=== PATIENT | female | born 1965 | race Caucasian/White ===

== ENCOUNTER 2016-11-18 16:10 | Emergency (ER) | payer MEDICAID ==
[~2016-11-18] VITALS: Ht 162.6 cm; Wt 72.0 kg
[~2016-11-18 16:10] MED LIST: HYDR-762 PO; ONDA4TAB35 PO
[2016-11-18 16:22] VITALS: Ht 162.6 cm; Wt 72.0 kg
[2016-11-18] MEDS ORDERED: ACETAMINOPHEN/CODEINE #3 TAB PO ONE (17:30)
--- NOTE | 2016-11-18 18:49 | RADRPT ---
PROCEDURE: CT Brain without contrast. CLINICAL INDICATION: Pain, headache TECHNIQUE: Routine CT scan of the brain was performed on a high resolution multi detector scanner without intravenous contrast. One or more of the following dose reduction techniques were used: Auto mated exposure control; Adjustment of the mA and/or kV according to patient size; Use of iterative r econstruction technique. CTDI = 43 mGy. DLP = 720 mGy-cm. COMPARISON: No prior relevant examinations are available for comparison. FINDINGS: Hemorrhage: No evidence of intracranial hemorrhage. Acute ischemic changes: No evidence of acute ischemic changes. Mass effect/Midline shift: None. Parenchymal volume: Within normal limits for age. Ventricular system: Concordant with parenchymal volume. Chronic changes: Parenchymal attenuation is within normal limits. Extracranial soft tissues: Unremarkable. Calvarium: No fractures. Paranasal sinuses: Visualized paranasal sinuses are clear. Mastoid air cells: Visualized mastoid air cells are clear. IMPRESSION: No acute intracranial abnormalities. Normal appearance of the brain parenchyma. RPTAT: AADD .Chris Booker MD, MD Date Time Electronically viewed and signed by .Chris Booker MD, on 11/18/2016 18:49 .B/
[2016-11-18] MEDS ORDERED: ABCC1C PO (18:55)
[2016-11-18] MEDS ORDERED: IBUP-1542 PO (18:55)
--- NOTE | 2016-11-18 19:00 | ERD ---
ER Documentation Chief Complaint Date/Time DATE: 11/18/16 TIME: 18:58 Chief Complaint HEADACHE X1 WEEK. HPI This 51-year-old female complains of left-sided headache for last week. Radiates from her left side of her neck to the left rastafarian area and left face.. She has a history of trauma, visual changes, vomiting, weakness, bowel or bladder incontinence. She denies any fevers or URI comes or additional preceding illnesses. ROS All systems reviewed and are negative except as per history of present illness. Medications Home Meds Active Scripts Ibuprofen* (Motrin*) 600 Mg Tab, 600 MG PO Q6, #20 TAB Prov:BREANNA LUCERO MD 11/18/16 Dahzqdclcbgja-Yiwownaqon-Xbxiygsz-Codeine* (Fioricet w/Codeine*) [id number] -30MG Cap, 1 CAP PO Q4H Y for PAIN LEVEL 1-5, #20 CAP Prov:BREANNA LUCERO MD 11/18/16 Ondansetron Hcl* (Zofran* ODT) 4 mg -ODT Tab.disper, 4 MG PO Q6 Y for NAUSEA AND /OR VOMITING, #30 TAB Prov:STACI PENA MD 05/19/16 Hydrocodone Bit-Acetaminophen* (Axis*) 10-325 Mg Tablet, 1 TAB PO Q6 Y for PAIN , #12 TAB Prov:STACI PENA MD 05/19/16 Allergies Allergies: Coded Allergies: No Known Allergy (Unverified , 05/19/16) PMhx/Soc History of Surgery: Yes (HYSTERECTOMY, C-SEC X1) Anesthesia Reaction: No Hx Alcohol Use: Yes (OCCASIONAL) Hx Substance Use: No Hx Tobacco Use: No Physical Exam Vitals Vital Signs Date Time Temp Pulse Resp B/P Pulse Ox O2 Delivery O2 Flow Rate FiO2 11/18/16 16:22 98.7 80 18 136/65 99 Physical Exam Const: [] Alert, mrl-lto-gfoennrzo per Head: Atraumatic Eyes: Normal Conjunctiva. Eyes are PERRLA and extraocular movements intact. ENT: Normal External Ears, Nose and Mouth. Neck: Full range of motion..~ No meningismus. Possibly reproducible pain with palpation of the C1-C2 paraspinous muscles. Resp: Clear to auscultation bilaterally Cardio: Regular rate and rhythm, no murmurs Abd: Soft, non tender, non distended. Normal bowel sounds Skin: No petechiae or rashes Back: No midline or flank tenderness Ext: No cyanosis, or edema Neur: Awake and alert. Cranial nerves II through XII grossly intact. Normal gait. No appreciable focal neurologic deficits. Psych: Normal Mood and Affect Results 24 hrs Current Medications Medications (Trade) Dose Ordered Sig/Kaur Route PRN Reason Start Time Stop Time Status Last Admin Dose Admin Acetaminophen/ Codeine Phosphate (Tylenol No.3) 1 tab ONCE ONCE PO 11/18/16 17:30 11/18/16 17:31 DC 11/18/16 17:29 Procedures/MDM Patient was given Tylenol [address] Patient is CT brain without contrast which was read as normal by the radiologist. Patient appears to have a left- sided headache possibly radiating from the cervical spine, possibly cervical radicular pain. She will be treated with Fiorinal with codeine and ibuprofen and observation at home. Patient is advised to follow-up with primary care doctor this week or return to the ER for new or worsening symptoms such as fevers, visual changes, weakness, additional symptoms with primary care doctor as directed. The patient was stable with no new complaints during the ER course. Clinically, there is no current evidence to suggest meningitis, sepsis, acute abdomen, pneumonia, acute coronary syndrome, pulmonary embolism, or any other emergent condition appearing to require further evaluation or hospitalization. The patient should certainly return for any new or worsening symptoms per the aftercare instructions. They should otherwise follow-up with her primary care doctor for reevaluation this week. Departure Diagnosis: Primary Impression: Neck pain Additional Impression: Headache Headache type: unspecified Headache chronicity pattern: unspecified pattern Intractability: not intractable Qualified Code: R51 - Nonintractable headache, unspecified chronicity pattern, unspecified headache type Condition: Stable Patient Instructions: Headache, Unspecified, Neck Pain, No Trauma Additional Instructions: CT NORMAL . Examines normal hoy. Cheque otro vez con luu doctor primario en el proximo urias or regresa para mas o nueva simptomas. BREANNA LUCERO MD Nov 18, 2016 19:00
== END 2016-11-18 19:03 | disposition home or self-care (01) ==
LOC: FTE 16:10
DX: M54.2 Cervicalgia (principal); R51 Headache
CPT/HCPCS: 70450; Z7502; Z7610

== ENCOUNTER 2017-03-30 22:07 | Emergency (ER) | payer MEDICAID ==
[~2017-03-30] VITALS: Ht 157.5 cm; Wt 74.0 kg
[~2017-03-30 22:07] MED LIST changes: +ABCC1C PO; +IBUP-1542 PO
[2017-03-30 22:15] VITALS: Ht 157.5 cm; Wt 74.0 kg
[2017-03-31] MEDS ORDERED: METOCLOPRAMIDE 10 MG INJ IV ONE (00:30)
[2017-03-31] MEDS ORDERED: DIPHENHYDRAMINE 50 MG INJ IV ONE (00:30)
[2017-03-31] MEDS ORDERED: SOD CHLORIDE 0.9% 500 ML IV ONE (00:30)
[2017-03-31 01:44] VITALS: BP 103/69; PULSE 68; RESP 17; TEMP 97.7
[2017-03-31] MEDS ORDERED: ASPI1TAB30 PO (01:52)
--- NOTE | 2017-03-31 02:00 | ERD ---
ER Documentation Chief Complaint Date/Time DATE: 03/31/17 TIME: 01:53 Chief Complaint Headache with hx of migraine HPI This 52-year-old male presents emergency room with a left-sided headache that has been going on for 1 week. Headache came on gradually and has gotten worse but has been steady for the last few days. She has had some nausea in the mornings with this headache. Denies fevers denies neck stiffness. Said that this feels like migraines that she has had before but is not responding to home Tylenol. She has no weakness, dizziness, difficulty speaking. ROS All systems reviewed and are negative except as per history of present illness. Medications Home Meds Active Scripts Aspirin/Acetaminophen/Caffeine (Excedrin Migraine Caplet) 1 Each Tablet, 1 EACH PO Q8 for HEADACHE, #10 TAB Prov:KRISTYN RODRÍGUEZ DO 03/31/17 Ibuprofen* (Motrin*) 600 Mg Tab, 600 MG PO Q6, #20 TAB Prov:BREANNA LUCERO MD 11/18/16 Tjxcmtaeeqyen-Njtucmqrwm-Lqoqywru-Codeine* (Fioricet w/Codeine*) [id number] -30MG Cap, 1 CAP PO Q4H Y for PAIN LEVEL 1-5, #20 CAP Prov:BREANNA LUCERO MD 11/18/16 Ondansetron Hcl* (Zofran* ODT) 4 mg -ODT Tab.disper, 4 MG PO Q6 Y for NAUSEA AND /OR VOMITING, #30 TAB Prov:STACI PENA MD 05/19/16 Hydrocodone Bit-Acetaminophen* ([place]*) 10-325 Mg Tablet, 1 TAB PO Q6 Y for PAIN , #12 TAB Prov:STACI PENA MD 05/19/16 Allergies Allergies: Coded Allergies: No Known Allergy (Unverified , 03/30/17) PMhx/Soc Medical and Surgical Hx: pt denies Medical Hx, pt denies Surgical Hx History of Surgery: No Anesthesia Reaction: No Hx Neurological Disorder: No Hx Respiratory Disorders: No Hx Cardiac Disorders: No Hx Psychiatric Problems: No Hx Miscellaneous Medical Probl: No Hx Alcohol Use: No Hx Substance Use: No Hx Tobacco Use: No Smoking Status: Never smoker Physical Exam Vitals Vital Signs Date Time Temp Pulse Resp B/P Pulse Ox O2 Delivery O2 Flow Rate FiO2 5/14/17 01:44 97.7 68 17 103/69 97 Room Air 03/30/17 23:48 98.0 71 18 136/74 99 Room Air 03/30/17 22:15 98.5 74 20 126/79 100 Physical Exam Const: [] No distress Head: Atraumatic Eyes: Normal Conjunctiva, EOMI, MORAIMA ENT: Normal External Ears, Nose and Mouth. Neck: Full range of motion..~ No meningismus. Skin: No petechiae or rashes Ext: No cyanosis, or edema Neur: Awake and alert and oriented 3, cranial nerves II through XII intact, no cerebellar deficits, normal gait Psych: Normal Mood and Affect Results 24 hrs Current Medications Medications (Trade) Dose Ordered Sig/Kaur Route PRN Reason Start Time Stop Time Status Last Admin Dose Admin Diphenhydramine HCl (Benadryl) 12.5 mg ONCE ONCE IV 03/31/17 00:30 03/31/17 00:31 DC 03/31/17 00:21 Metoclopramide HCl 10 mg 10 mg ONCE ONCE IV 03/31/17 00:30 03/31/17 00:31 DC 03/31/17 00:20 Sodium Chloride (NS) 500 ml @ 500 mls/hr Q1H ONCE IV 03/31/17 00:30 03/31/17 01:29 DC 03/31/17 00:21 Procedures/MDM Migraine that feels like patient's prior migraines but is lasting longer. Easily almost completely resolved with a migraine cocktail in the emergency room. This consisted of 12.5 mg IV Benadryl, 10 mg Reglan, 500 mL normal saline. I have very low suspicion for subarachnoid hemorrhage or meningitis. Discharging with primary care follow-up in next 2-3 days and return precautions. I am also discharging her with some Excedrin. Departure Diagnosis: Primary Impression: Migraine Condition: Stable Patient Instructions: What Are Migraine and Tension Headaches? Referrals: COMM[facility] CLIN[facility] YOU HAVE RECEIVED A MEDICAL SCREENING EXAM AND THE RESULTS INDICATE THAT YOU DO NOT HAVE A CONDITION THAT REQUIRES URGENT TREATMENT IN THE EMERGENCY DEPARTMENT. FURTHER EVALUATION AND TREATMENT OF YOUR CONDITION CAN WAIT UNTIL YOU ARE SEEN IN YOUR DOCTORS OFFICE WITHIN THE NEXT 1-2 DAYS. IT IS YOUR RESPONSIBILITY TO MAKE AN APPOINTMENT FOR FOLOW-UP CARE. IF YOU HAVE A PRIMARY DOCTOR --you should call your primary doctor and schedule an appointment IF YOU DO NOT HAVE A PRIMARY DOCTOR YOU CAN CALL OUR PHYSICIAN REFERRAL HOTLINE AT IF YOU CAN NOT AFFORD TO SEE A PHYSICIAN YOU CAN CHOSE FROM THE FOLLOWING [facility] [address] [facility] [address] [facility] [address] [facility] [address] [facility] [address] [facility]. [facility]. [address] Additional Instructions: Llame al doctor MAANA y titi matthew AMANDA PARA DENTRO DE 2-3 SOSA.Dgale a la secretaria que nosotros le instruimos hacer esta amanda.Avise o llame si luu condicin se empeora antes de la amanda. Regresa aqui si peor o no mejor. KRISTYN RODRÍGUEZ DO March 31, 2017 02:00
== END 2017-03-31 02:02 | disposition home or self-care (01) ==
LOC: E/R 22:07
DX: G43.909 Migraine, unspecified, not intractable, without status migrainosus (principal); Z79.82 Long term (current) use of aspirin
CPT/HCPCS: 96374; 96375; J1200; J2765; J7040; Z7502

== ENCOUNTER 2017-05-16 12:01 | Emergency (ER) | payer MEDICAID ==
[~2017-05-16] VITALS: Ht 165.1 cm; Wt 73.5 kg
[~2017-05-16 12:01] MED LIST changes: +ASPI1TAB30 PO
[2017-05-16 12:14] VITALS: Ht 165.1 cm; Wt 73.5 kg
[2017-05-16] MEDS ORDERED: KETOROLAC 15 MG INJ IM STA (12:54)
--- NOTE | 2017-05-16 13:36 | RADRPT ---
PROCEDURE: US venous left lower extremity CLINICAL INDICATION: Left lower extremity pain. TECHNIQUE: Multiple longitudinal and transverse images of the left lower extremity veins were obta ined with vuong scale and color Doppler imaging. 2D grayscale imaging with compression, color Dopple r flow, and augmentation was performed. The calf veins were interrogated as well. COMPARISON: None available. FINDINGS: The left common femoral, superficial femoral, and popliteal veins are normally compressible througho ut. There is normal color Doppler flow within the vessels and all the vessels are augmentable. The c detention veins are visualized and are equally unremarkable. IMPRESSION: 1. No evidence of a deep vein thrombosis within the left lower extremity. RPTAT: GG .Terrell Corea MD, Date Time Electronically viewed and signed by .Terrell Corea MD, MD on 05/16/2017 13:36 .P/
[2017-05-16] MEDS ORDERED: NAPR-260 PO (14:50)
[2017-05-16] MEDS ORDERED: CYCL-319 PO (14:50)
--- NOTE | 2017-05-16 14:58 | ERD ---
ER Documentation Chief Complaint Date/Time DATE: 05/16/17 TIME: 14:55 Chief Complaint Complains of left leg pain HPI She is a 52-year-old female with no past medical history who presents to the ED with left leg pain 1 week. She states that she stands all day at work and has been developing a cramping sensation in her left leg. She denies chest pain or cough or shortness of breath. She states that last night when she was laying down she felt palpitations in her heart however she denies those symptoms today. Denies shortness of breath. Denies syncopal episode. Denies leg swelling. Denies recent travel or recent surgeries. Denies fever or chills. She has not taken any medicine for her symptoms. Denies history of DVT or PE in the past. No other complaints denies trauma or falls ROS All systems reviewed and are negative except as per history of present illness. Medications Home Meds Active Scripts Cyclobenzaprine Hcl* (Cyclobenzaprine Hcl*) 10 Mg Tablet, 10 MG PO TID, #15 TAB Prov:RHIANNON TIDWELL PA-C 05/16/17 Naproxen* (Naprosyn*) 500 Mg Tablet, 500 MG PO BID Y for PAIN AND/OR INFLAMMATION, #30 TAB Prov:RHIANNON TIDWELL PA-C 05/16/17 Aspirin/Acetaminophen/Caffeine (Excedrin Migraine Caplet) 1 Each Tablet, 1 EACH PO Q8 for HEADACHE, #10 TAB Prov:KRISTYN RODRÍGUEZ DO 03/31/17 Ibuprofen* (Motrin*) 600 Mg Tab, 600 MG PO Q6, #20 TAB Prov:BREANNA LUCERO MD 11/18/16 Eayynylkzewfd-Aqkktiyxur-Ohjenqbp-Codeine* (Fioricet w/Codeine*) [id number] -30MG Cap, 1 CAP PO Q4H Y for PAIN LEVEL 1-5, #20 CAP Prov:BREANNA LUCERO MD 11/18/16 Ondansetron Hcl* (Zofran* ODT) 4 mg -ODT Tab.disper, 4 MG PO Q6 Y for NAUSEA AND /OR VOMITING, #30 TAB Prov:STACI PENA MD 05/19/16 Hydrocodone Bit-Acetaminophen* ([place]*) 10-325 Mg Tablet, 1 TAB PO Q6 Y for PAIN , #12 TAB Prov:STACI PENA MD 05/19/16 Allergies Allergies: Coded Allergies: No Known Allergy (Unverified , 03/30/17) PMhx/Soc History of Surgery: No Anesthesia Reaction: No Hx Neurological Disorder: No Hx Respiratory Disorders: No Hx Cardiac Disorders: No Hx Psychiatric Problems: No Hx Miscellaneous Medical Probl: No Hx Alcohol Use: No Hx Substance Use: No Hx Tobacco Use: No Smoking Status: Never smoker FmHx Family History: No coronary disease, No diabetes, No other Physical Exam Vitals Vital Signs Date Time Temp Pulse Resp B/P Pulse Ox O2 Delivery O2 Flow Rate FiO2 05/16/17 12:14 98.3 80 20 127/78 98 Physical Exam GENERAL: Well-developed, well-nourished female. Appears in no acute distress. HEAD: Normocephalic, atraumatic. EYES: Pupils are equally reactive bilaterally. EOMs grossly intact. No conjunctival erythema. ENT: Moist mucous membranes. No uvula deviation. No kissing tonsils. No exudates. NECK: Supple. No lymphadenopathy or thyromegaly. No meningismus. negative kernig. negative brudinski. LUNG: Clear to auscultation bilaterally. No rhonchi, wheezing, rales or coarse breath sounds. HEART: Regular rate and rhythm. No murmurs, rubs or gallops. Extremities: Equal pulses bilaterally. No peripheral clubbing, cyanosis or edema. No unilateral leg swelling. Negative Homans sign. No palpable cord. No erythema. NEUROLOGIC: Alert and oriented. Moving all four extremities. 5/5 strength in all extremities. Normal speech. unSteady gait. SKIN: Normal color. Warm and dry. No rashes or lesions. Capillary refill < 2 seconds Results 24 hrs Current Medications Medications (Trade) Dose Ordered Sig/Kaur Route PRN Reason Start Time Stop Time Status Last Admin Dose Admin Ketorolac Tromethamine (Toradol) 15 mg ONCE STAT IM 05/16/17 12:54 05/16/17 12:57 DC 05/16/17 13:45 Procedures/MDM ER COURSE: I kept the patient and/or family informed of laboratory and diagnostic imaging results throughout the emergency room course. IMAGING STUDIES EKG performed, read by DR ORDONEZ 66bpm, normal sinus rhythm, normal axis, no acute ST segment changes, no T wave inversion [place] [address] Radiology Main Line: [phone] DIAGNOSTIC IMAGING REPORT Patient: KATHRYN DIGGS : 1965 Age: 52 Sex: F MR #: [id number] DOS: 05/16/17 1254 Ordering MD: RHIANNON TIDWELL PA-C Location: [facility] Room/Bed: PROCEDURE: US venous left lower extremity CLINICAL INDICATION: Left lower extremity pain. TECHNIQUE: Multiple longitudinal and transverse images of the left lower extremity veins were obtained with vuong scale and color Doppler imaging. 2D grayscale imaging with compression, color Doppler flow, and augmentation was performed. The calf veins were interrogated as well. COMPARISON: None available. FINDINGS: The left common femoral, superficial femoral, and popliteal veins are normally compressible throughout. There is normal color Doppler flow within the vessels and all the vessels are augmentable. The calf veins are visualized and are equally unremarkable. IMPRESSION: 1. No evidence of a deep vein thrombosis within the left lower extremity. RPTAT: GG .Terrell Corea MD, MD Date Time Electronically viewed and signed by .Terrell Corea MD, MD on 05/16/2017 13:36 .P/ CC: RHIANNON TIDWELL PA-C MEDICAL DECISION MAKING: This is a 52-year-old female who presents with left leg pain 1 week. Vital signs were reviewed. Patient is afebrile. Patient is not hypoxic. Patient is nontoxic or ill-appearing. Patient denies any trauma and I do not think at this point an x-ray is necessary at this time. Patient states that it was a gradual onset of pain. Ultrasound was unremarkable for DVT. EKG wound was within normal limits. Patient's leg pain is likely muscle strain versus sprain. I have low suspicion for DVT or PE. PERC Criteria Assessment: Low suspicion for dislocation, fracture, septic joint, compartment syndrome, osteomyelitis, cellulitis, avascular necrosis, neurological injury, vascular injury, tendon laceration. Age > 50: No HR > 100: No 02 < 95%: No H/o DVT/PE: No Recent trauma/surgery: No Hemoptysis: No Exogenous Estrogen: No Unilateral Leg swelling: No Pretest probability > 15%: No [Less than 2% risk of PE. No further work up is necessary] DISCHARGE: At this time, patient is stable for discharge and outpatient management with no new complaints during the ER course. Patient was sent home with Lilli in the list of primary care providers and to follow-up with this week. Patient will be discharged home with instructions to recheck for new or worsening symptoms such as fever, nausea, weakness, LOC and to follow up with primary care in the next 1-2 days. Patient was advised to return to the ER for any new or worsening symptoms. Plan was discussed and patient and/or family understands and agrees. Home instructions were given. Departure Diagnosis: Primary Impression: Leg pain, left Condition: Stable Patient Instructions: Possible Causes of Low Back or Leg Pain Referrals: [facility] Usted se sanches hecho un examen mdico de control que le indica que no est en matthew condicin que requiera tratamiento urgente en el Departamento de Emergencia. Un estudio ms profundo y el tratamiento de luu condicin pueden esperar sin ningn riesgo hasta que usted sea atendida/o en el consultorio de luu mdico o matthew cl ar. Es responsabilidad suya arreglar matthew amanda para el seguimiento del jaswant. MANEJO DE CONDICIONES NO URGENTES EN EL FUTURO 1) Si usted tiene un mdico de atencin primaria: Usted debera llamar a luu mdico de atencin primaria antes de venir al departamento de emergencia. Despus de las horas de consultorio, luu doctor o luu asociado/a est disponible por telfono. El mdico o enfermero de lesley en el servicio telefnico puede asesorarle por rasta medio para atender el problema, o jaswant contrario se puede programar matthew amanda. 2) Si usted no tiene un mdico de atencin primaria: Llame al mdico o clnica de referencia que aparece abajo lavern las horas de consultorio para hacer matthew amanda para que le vean. CLINICAS: [facility] [phone] [facility] [phone] [facility] [phone] [place] [phone] [place] [address] [phone] [facility] [phone] [address] Additional Instructions: Llame al doctor MAANA y titi matthew AMANDA PARA DENTRO DE 1-2 SOSA.Dgale a la secretaria que nosotros le instruimos hacer esta amanda.Avise o llame si luu condicin se empeora antes de la amanda. Regresa aqui si peor o no mejor. RHIANNON TIDWELL PA-C May 16, 2017 14:58
[2017-05-16 15:30] VITALS: BP 138/75; PULSE 74; RESP 18; TEMP 98.5
== END 2017-05-16 15:31 | disposition home or self-care (01) ==
LOC: FTE 12:01
DX: M79.605 Pain in left leg (principal); R00.2 Palpitations
CPT/HCPCS: 93005; 93971; 96372; J1885; Z7502

== ENCOUNTER 2017-07-12 08:10 | Emergency (ER) | payer MEDICAID ==
[~2017-07-12] VITALS: Ht 160 cm; Wt 80.0 kg
[~2017-07-12 08:10] MED LIST changes: +CYCL-319 PO; +NAPR-260 PO
[2017-07-12 08:14] VITALS: Ht 160 cm; Wt 80.0 kg
[2017-07-12] MEDS ORDERED: morphine 4 MG/ML VIAL IV STA (08:31)
[2017-07-12] MEDS ORDERED: SOD CHLORIDE 0.9% 1,000 ML IV STA (08:31)
[2017-07-12] MEDS ORDERED: ONDANSETRON 4 MG INJ IV STA (08:31)
[2017-07-12 09:10] LABS: BASOPHIL # 0.1 10^3/ul (0.0-0.1); EOSINOPHILS # 0.1 10^3/ul (0.0-0.5); EOSINOPHILS % 1.4 % (0.0-7.0); HEMATOCRIT 38.7 % (37.0-47.0); HEMOGLOBIN 12.8 g/dl (12.0-16.0); LYMPHOCYTES % 24.5 % (15.0-51.0); MEAN CORPUSCULAR HEMOGLOBIN 29.3 pg (29.0-33.0); MEAN CORPUSCULAR HGB CONC 33.1 g/dl (32.0-37.0); MEAN CORPUSCULAR VOLUME 88.6 fl (82.0-101.0); MEAN PLATELET VOLUME 9.3 fl (7.4-10.4); MONOCYTE # 0.6 10^3/ul (0.3-0.9); MONOCYTES % 7.1 % (0.0-11.0); NEUTROPHILS % 65.6 % (39.0-77.0); PLATELET COUNT 288 10^3/UL (140-415); RED BLOOD COUNT 4.37 10^6/ul (4.20-5.40); RED CELL DISTRIBUTION WIDTH 13.6 % (11.5-14.5)
[2017-07-12 09:26] LABS: ANION GAP 16 (8-16); BLOOD UREA NITROGEN 10 mg/dl (7-20); CALCIUM 9.7 mg/dl (8.4-10.2); CARBON DIOXIDE 28 mmol/L (21-31); CHLORIDE 102 mmol/L (97-110); GLUCOSE 111 mg/dl (70-220); POTASSIUM 4.2 mmol/L (3.5-5.1); SODIUM 142 mmol/L (135-144)
--- NOTE | 2017-07-12 09:34 | RADRPT ---
PROCEDURE: CT brain without contrast CLINICAL INDICATION: Headache temporal 2 weeks TECHNIQUE: CT of the brain without contrast was performed on a multidetector CT scanner, with multi planar reformats. One or more of the following dose reduction techniques were used: Automated expos ure control, adjustment in mA and / or kV according to patient size, use of iterative reconstructive technique. CTDIvol = 44 mGy; DLP = 630 mGy-cm. COMPARISON: CT brain 11/18/2016 FINDINGS: No acute intracranial hemorrhage is identified. No extra-axial fluid collection is seen. There is no mass effect. No midline shift is identified. Ventricles and sulci are within normal limits for size and configuration. The density of the brain is unremarkable. Escudero-white differentiation is preserved. Atherosclerotic calcifications are noted at the intracranial internal carotid arteries. Calvarium and skull base are unremarkable. Mastoid air cells and imaged paranasal sinuses grossly c lear. IMPRESSION: No evidence of acute intracranial pathology. RPTAT: VV .Cm Juares MD, MD Date Time Electronically viewed and signed by .Cm Juares MD, on 07/12/2017 09:34 .O/
[2017-07-12 09:37] LABS: TROPONIN-I < 0.012 ng/ml (0.00-0.12)
[2017-07-12] MEDS ORDERED: IBUP-1542 PO (09:46)
[2017-07-12] MEDS ORDERED: ONDA4TAB14 PO (09:46)
--- NOTE | 2017-07-12 09:50 | ERD ---
ER Documentation Chief Complaint Date/Time DATE: 07/12/17 TIME: 09:48 Chief Complaint MONROY , vision changes and left face pain x 3 wks HPI Patient is a 52-year-old female with no medical problems who presents with headache. 3 weeks she has had left-sided facial pain and left-sided headache. She feels tired. She had chest palpitations. The symptoms were constant. She has a history of the same pain in the past and has been told that she had migraine headaches. Upon review of old medical records this is the patient's fifth visit to the ER since 2016. She does not currently have a primary doctor. ROS All systems reviewed and are negative except as per history of present illness. Medications Home Meds Active Scripts Ondansetron (Ondansetron Odt) 4 Mg Tab.rapdis, 4 MG PO Q6H Y for NAUSEA AND/OR VOMITING, #10 TAB Prov:STACI PENA MD 07/12/17 Ibuprofen* (Motrin*) 600 Mg Tab, 600 MG PO Q8, #30 TAB Prov:STACI PENA MD 07/12/17 Discontinued Scripts Cyclobenzaprine Hcl* (Cyclobenzaprine Hcl*) 10 Mg Tablet, 10 MG PO TID, #15 TAB Prov:RHIANNON TIDWELL PA-C 05/16/17 Naproxen* (Naprosyn*) 500 Mg Tablet, 500 MG PO BID Y for PAIN AND/OR INFLAMMATION, #30 TAB Prov:RHIANNON TIDWELL PA-C 05/16/17 Aspirin/Acetaminophen/Caffeine (Excedrin Migraine Caplet) 1 Each Tablet, 1 EACH PO Q8 for HEADACHE, #10 TAB Prov:KRISTYN RODRÍGUEZ DO 03/31/17 Ibuprofen* (Motrin*) 600 Mg Tab, 600 MG PO Q6, #20 TAB Prov:BREANNA LUCERO MD 11/18/16 Zmazfjxemuioe-Cqyomlruwv-Efkblrtl-Codeine* (Fioricet w/Codeine*) [id number] -30MG Cap, 1 CAP PO Q4H Y for PAIN LEVEL 1-5, #20 CAP Prov:BREANNA LUCERO MD 11/18/16 Ondansetron Hcl* (Zofran* ODT) 4 mg -ODT Tab.disper, 4 MG PO Q6 Y for NAUSEA AND /OR VOMITING, #30 TAB Prov:STACI PENA MD 05/19/16 Hydrocodone Bit-Acetaminophen* ([place]*) 10-325 Mg Tablet, 1 TAB PO Q6 Y for PAIN , #12 TAB Prov:STACI PENA MD 05/19/16 Allergies Allergies: Coded Allergies: No Known Allergy (Unverified , 07/12/17) PMhx/Soc Medical and Surgical Hx: pt denies Medical Hx, pt denies Surgical Hx History of Surgery: No Anesthesia Reaction: No Hx Neurological Disorder: No Hx Respiratory Disorders: No Hx Cardiac Disorders: No Hx Psychiatric Problems: No Hx Miscellaneous Medical Probl: Yes (headache) Hx Alcohol Use: No Hx Substance Use: No Hx Tobacco Use: No Smoking Status: Never smoker FmHx Family History: diabetes Physical Exam Vitals Vital Signs Date Time Temp Pulse Resp B/P Pulse Ox O2 Delivery O2 Flow Rate FiO2 07/12/17 08:47 78 21 114/86 98 Room Air 07/12/17 08:14 99.0 78 18 132/64 98 Physical Exam Const: Mild distress secondary to pain Head: Atraumatic Eyes: Normal Conjunctiva ENT: Normal External Ears, Nose and Mouth. Neck: Full range of motion..~ No meningismus. Resp: Clear to auscultation bilaterally Cardio: Regular rate and rhythm, no murmurs Abd: Soft, non tender, non distended. Normal bowel sounds Skin: No petechiae or rashes Back: No midline or flank tenderness Ext: No cyanosis, or edema Neur: Awake and alert, cranial nerves II through XII are intact, no slurred speech, strength is 5 out of 5 in all 4 extremities Psych: Normal Mood and Affect Result Diagram: 07/12/17 0846 07/12/17 0846 Results 24 hrs Laboratory Tests Test 07/12/17 08:46 White Blood Count 8.010^3/ul Red Blood Count 4.3710^6/ul Hemoglobin 12.8g/dl Hematocrit 38.7% Mean Corpuscular Volume 88.6fl Mean Corpuscular Hemoglobin 29.3pg Mean Corpuscular Hemoglobin Concent 33.1g/dl Red Cell Distribution Width 13.6% Platelet Count 61375^3/UL Mean Platelet Volume 9.3fl Neutrophils % 65.6% Lymphocytes % 24.5% Monocytes % 7.1% Eosinophils % 1.4% Basophils % 1.0% Nucleated Red Blood Cells % 0.0/100WBC Neutrophils # (Manual) 5.310^3/ul Lymphocytes # 2.010^3/ul Monocytes # 0.610^3/ul Eosinophils # 0.110^3/ul Basophils # 0.110^3/ul Nucleated Red Blood Cells # 0.010^3/ul Sodium Level 142mmol/L Potassium Level 4.2mmol/L Chloride Level 102mmol/L Carbon Dioxide Level 28mmol/L Anion Gap 16 Blood Urea Nitrogen 10mg/dl Creatinine 0.60mg/dl Glucose Level 111mg/dl Calcium Level 9.7mg/dl Troponin I < 0.012ng/ml Current Medications Medications (Trade) Dose Ordered Sig/Kaur Route PRN Reason Start Time Stop Time Status Last Admin Dose Admin Sodium Chloride (NS) 1,000 ml @ 1,000 mls/hr Q1H STAT IV 07/12/17 08:31 07/12/17 09:30 DC 07/12/17 08:31 Ondansetron HCl (Zofran Inj) 4 mg ONCE STAT IV 07/12/17 08:31 07/12/17 08:32 DC 07/12/17 09:27 Morphine Sulfate (morphine) 4 mg ONCE STAT IV 07/12/17 08:31 07/12/17 08:32 DC 07/12/17 08:31 Procedures/MDM CT brain shows no abnormalities per radiology. Patient is a 52-year-old female with no medical problems who presents with headache and facial pain. Laboratory studies were normal. CT scan of the brain was negative. At this point I doubt intracranial hemorrhage or mass. I doubt stroke. I doubt meningitis. I believe outpatient management is appropriate. The patient will be given a prescription for ibuprofen and Zofran but will need to follow-up closely with the primary doctor within the next 24- 48 hours. She will be given a list of the local clinics as she does not currently have a primary doctor at this time. Departure Diagnosis: Primary Impression: Headache Headache type: unspecified Headache chronicity pattern: acute headache Intractability: not intractable Qualified Code: R51 - Acute nonintractable headache, unspecified headache type Additional Impression: Dizziness Condition: Fair Patient Instructions: Self-Care for Headaches Referrals: [facility] Usted se monroy hecho un examen mdico de control que le indica que no est en matthew condicin que requiera tratamiento urgente en el Departamento de Emergencia. Un estudio ms profundo y el tratamiento de luu condicin pueden esperar sin ningn riesgo hasta que usted sea atendida/o en el consultorio de luu mdico o matthew cl ar. Es responsabilidad suya arreglar matthew amanda para el seguimiento del jaswant. MANEJO DE CONDICIONES NO URGENTES EN EL FUTURO 1) Si usted tiene un mdico de atencin primaria: Usted debera llamar a luu mdico de atencin primaria antes de venir al departamento de emergencia. Despus de las horas de consultorio, luu doctor o luu asociado/a est disponible por telfono. El mdico o enfermero de lesley en el servicio telefnico puede asesorarle por rasta medio para atender el problema, o jaswant contrario se puede programar matthew amanda. 2) Si usted no tiene un mdico de atencin primaria: Llame al mdico o clnica de referencia que aparece abajo lavern las horas de consultorio para hacer matthew amanda para que le vean. CLINICAS: [facility] [phone] [facility] [phone] [address] [facility] [phone] [facility]. [facility] [phone] [facility]. [place] [phone] [facility]. [phone] [address] Additional Instructions: Llame al doctor MAANA y titi matthew AMANDA PARA DENTRO DE 1-2 SOSA.Dgale a la secretaria que nosotros le instruimos hacer esta amanda.Avise o llame si luu condicin se empeora antes de la amanda. Regresa aqui si peor o no mejor. STACI PENA MD Jul 12, 2017 09:48
[2017-07-12 11:39] LABS: INR 1.02; PROTIME 13.4 Sec (12.2-14.2)
[2017-07-12 11:40] VITALS: BP 111/81; PULSE 61; RESP 20; TEMP 99
[2017-07-12 11:40] LABS: PARTIAL THROMBOPLASTIN TIME 27.8 Sec (25.0-35.0)
== END 2017-07-12 11:43 | disposition home or self-care (01) ==
LOC: E/R 08:10
DX: R51 Headache (principal); R40.2252 Coma scale, best verbal response, oriented, at arrival to emergency department; R42 Dizziness and giddiness; R40.2142 Coma scale, eyes open, spontaneous, at arrival to emergency department; R40.2362 Coma scale, best motor response, obeys commands, at arrival to emergency department; Z79.82 Long term (current) use of aspirin
CPT/HCPCS: 36415; 70450; 80048; 84484; 85025; 85610; 85730; 96374; 96375; J2270; J2405; J7030; Z7502; Z7610

== ENCOUNTER 2017-07-25 08:15 | Inpatient (IN) | payer MEDICAID ==
[~2017-07-25] VITALS: Ht 170.2 cm; Wt 74.7 kg
[~2017-07-25 08:15] MED LIST changes: -ABCC1C PO; -ASPI1TAB30 PO; -CYCL-319 PO; -HYDR-762 PO; -NAPR-260 PO; +ONDA4TAB14 PO; -ONDA4TAB35 PO
[2017-07-25] MEDS ORDERED: ONDANSETRON 4 MG INJ IV STA (08:58)
[2017-07-25] MEDS ORDERED: LIDOCAINE/MYLANTA 40 ML BTL PO STA (08:58)
[2017-07-25] MEDS ORDERED: FAMOTIDINE 20 MG TAB PO STA (08:58)
[2017-07-25] MEDS ORDERED: BELLADONNA/PHENOBARBITAL TAB PO STA (08:58)
[2017-07-25] MEDS ORDERED: SOD CHLORIDE 0.9% 1,000 ML IV STA (08:58)
[2017-07-25] MEDS ORDERED: KETOROLAC 15 MG INJ IV STA (08:58)
[2017-07-25 09:28] LABS: BASOPHIL # 0.1 10^3/ul (0.0-0.1); BASOPHILS % 0.6 % (0.0-2.0); EOSINOPHILS # 0.1 10^3/ul (0.0-0.5); EOSINOPHILS % 0.8 % (0.0-7.0); HEMATOCRIT 36.3 % (37.0-47.0); HEMOGLOBIN 12.6 g/dl (12.0-16.0); LYMPHOCYTES # 1.6 10^3/ul (0.8-2.9); LYMPHOCYTES % 18.3 % (15.0-51.0); MEAN CORPUSCULAR HEMOGLOBIN 30.1 pg (29.0-33.0); MEAN CORPUSCULAR HGB CONC 34.7 g/dl (32.0-37.0); MEAN CORPUSCULAR VOLUME 86.6 fl (82.0-101.0); MEAN PLATELET VOLUME 8.7 fl (7.4-10.4); MONOCYTES % 11.6 % (0.0-11.0); NEUTROPHILS % 68.1 % (39.0-77.0); PLATELET COUNT 302 10^3/UL (140-415); RED BLOOD COUNT 4.19 10^6/ul (4.20-5.40); RED CELL DISTRIBUTION WIDTH 13.5 % (11.5-14.5); WHITE BLOOD COUNT 8.9 10^3/ul (4.8-10.8)
[2017-07-25 09:39] LABS: ADD UMIC YES; UR ASCORBIC ACID NEGATIVE (NEGATIVE); UR BILIRUBIN (Dip) NEGATIVE (NEGATIVE); UR BLOOD (Dip) 2+ mg/dL (NEGATIVE); UR CLARITY CLEAR (CLEAR); UR COLOR STRAW (YELLOW); UR GLUCOSE (Dip) NEGATIVE (NEGATIVE); UR KETONES (Dip) NEGATIVE (NEGATIVE); UR LEUKOCYTE ESTERASE (Dip) NEGATIVE Leu/ul (NEGATIVE); UR NITRITE (Dip) NEGATIVE (NEGATIVE); UR RBC 1 /HPF (0-5); UR SPECIFIC GRAVITY (Dip) 1.002 (1.003-1.030); UR TOTAL PROTEIN (Dip) NEGATIVE (NEGATIVE); UR UROBILINOGEN (Dip) NEGATIVE (NEGATIVE)
[2017-07-25 10:07] LABS: ALBUMIN/GLOBULIN RATIO 1.25; BILIRUBIN,INDIRECT 0.4 mg/dl (0-1.1); BILIRUBIN,TOTAL 0.4 mg/dl (0.2-1.3); CALCIUM 9.3 mg/dl (8.4-10.2); CREATININE 0.63 mg/dl (0.44-1.00); POTASSIUM 3.3 mmol/L (3.5-5.1); TOTAL PROTEIN 7.2 g/dl (6.1-8.1)
--- NOTE | 2017-07-25 11:28 | RADRPT ---
PROCEDURE: US Abdomen. CLINICAL INDICATION: abdominal pain , nausea and vomiting TECHNIQUE: Multiple real-time images were acquired of the patient's right upper quadrant abdomen a nd retroperitoneum utilizing a high resolution transducer. COMPARISON: US ABDOMEN 05/19/2016 FINDINGS: The liver demonstrates normal echogenicity. The liver is normal in size and no focal solid lesions are seen. The liver measures 16.1 cm in length. The portal vein is patent with normal direction of f low. No intrahepatic biliary dilatation is seen. There is a large calcified stone within the gallbladder measuring 3.1 cm. There is also a small amou nt of sludge within the gallbladder. There is no pericholecystic fluid or gallbladder wall thickenin g. The common bile duct measures 3 mm in maximal dimension. The visualized portions of the pancreas are unremarkable. The tail of the pancreas is not seen. No free fluid is identified. The right kidney is normal in size, and demonstrate normal echogenicity and cortical thickness. The right kidney measures 10.7 cm in long dimension. There is no evidence of hydronephrosis. There are no kidney stones. RPTAT: AA IMPRESSION: Large calcified stone within the gallbladder with a small amount of sludge. No evidence of gallbladder wall thickening or pericholecystic fluid. .Todd Steinberg MD, MD Date Time Electronically viewed and signed by .Todd Steinberg MD, on 07/25/2017 11:27 .S/
[2017-07-25 11:30] VITALS: TEMP 98.3
[2017-07-25 14:02] VITALS: BP 106/72; RESP 18
--- NOTE | 2017-07-25 14:16 | ERA ---
ER Documentation Chief Complaint Date/Time DATE: 07/25/17 TIME: 14:11 Chief Complaint ABD PAIN, CONSTIPATION, HEADACHE, NAUSEA HPI 52-year-old woman complains of right upper quadrant abdominal pain with nausea 2 days. She states the pain is been increasingAnd states she does have a history of cholelithiasis but pain is never been so severe. She denies blood per rectum or melena, no fevers or chills, no chest pain or shortness of breath. ROS All systems reviewed and are negative except as per history of present illness. Medications Home Meds Discontinued Scripts Ondansetron (Ondansetron Odt) 4 Mg Tab.rapdis, 4 MG PO Q6H Y for NAUSEA AND/OR VOMITING, #10 TAB Prov:STACI PENA MD 07/12/17 Ibuprofen* (Motrin*) 600 Mg Tab, 600 MG PO Q8, #30 TAB Prov:STACI PENA MD 07/12/17 Allergies Allergies: Coded Allergies: No Known Allergy (Unverified , 07/12/17) PMhx/Soc Gallstones Medical and Surgical Hx: pt denies Medical Hx, pt denies Surgical Hx History of Surgery: No Anesthesia Reaction: No Hx Neurological Disorder: No Hx Respiratory Disorders: No Hx Cardiac Disorders: No Hx Psychiatric Problems: No Hx Miscellaneous Medical Probl: Yes (headache) Hx Alcohol Use: No Hx Substance Use: No Hx Tobacco Use: No Smoking Status: Never smoker FmHx Family History: No diabetes Physical Exam Vitals Vital Signs Date Time Temp Pulse Resp B/P Pulse Ox O2 Delivery O2 Flow Rate FiO2 07/25/17 11:30 98.3 76 20 106/51 98 Room Air 07/25/17 10:43 68 16 102/61 99 Room Air 07/25/17 08:16 98.7 91 18 102/64 98 Physical Exam GENERAL: Well-developed, well-nourished, moderate discomfort, afebrile HEENT: Moist mucous membranes, pink conjunctiva, no cervical spine tenderness or step-off deformities, no goiter, no jaundice or icterus, extraocular movements intact without pain. No submandibular induration, and no pharyngeal erythema NEURO: Alert and oriented 3, cranial nerves II through XII intact bilaterally, pupils equal round reactive to light, no focal deficits or facial asymmetry, sensation intact distally Strength 5/5 in upper and lower extremities bilaterally CARDIAC: Regular rate and rhythm, no murmurs rubs or gallops LUNGS: Clear bilaterally no wheezing crackles or stridor ABDOMEN: Mild right upper quadrant tenderness to touch with voluntary guarding, no guarding, no rigidity, no rebound, no psoas sign no obturator sign. Normoactive bowel sounds SKIN: Warm and dry to touch, no abrasions, contusions, or hematomas, no lacerations, no ecchymosis, no target lesions, and without ulcers EXTREMITIES: No clubbing cyanosis or edema, calves are bilaterally symmetrical, no Homans sign, no popliteal cord sign. Distal pulses equal and bilateral PSYCH: Normal affect without agitation or irritability Result Diagram: 07/25/1710 07/25/1710 Results 24 hrs Laboratory Tests Test 07/25/17 09:10 White Blood Count 8.910^3/ul Red Blood Count 4.1910^6/ul Hemoglobin 12.6g/dl Hematocrit 36.3% Mean Corpuscular Volume 86.6fl Mean Corpuscular Hemoglobin 30.1pg Mean Corpuscular Hemoglobin Concent 34.7g/dl Red Cell Distribution Width 13.5% Platelet Count 27886^3/UL Mean Platelet Volume 8.7fl Neutrophils % 68.1% Lymphocytes % 18.3% Monocytes % 11.6% Eosinophils % 0.8% Basophils % 0.6% Nucleated Red Blood Cells % 0.0/100WBC Neutrophils # (Manual) 6.110^3/ul Lymphocytes # 1.610^3/ul Monocytes # 1.010^3/ul Eosinophils # 0.110^3/ul Basophils # 0.110^3/ul Nucleated Red Blood Cells # 0.010^3/ul Urine Color STRAW Urine Clarity CLEAR Urine pH 8.0 Urine Specific [place] 1.002 Urine Ketones NEGATIVEmg/dL Urine Nitrite NEGATIVEmg/dL Urine Bilirubin NEGATIVEmg/dL Urine Urobilinogen NEGATIVEmg/dL Urine Leukocyte Esterase NEGATIVELeu/ul Urine Microscopic RBC 1/HPF Urine Microscopic WBC 0/HPF Urine Hemoglobin 2+mg/dL Urine Glucose NEGATIVEmg/dL Urine Total Protein NEGATIVEmg/dl Sodium Level 143mmol/L Potassium Level 3.3mmol/L Chloride Level 105mmol/L Carbon Dioxide Level 27mmol/L Anion Gap 14 Blood Urea Nitrogen 9mg/dl Creatinine 0.63mg/dl Glucose Level 99mg/dl Calcium Level 9.3mg/dl Total Bilirubin 0.4mg/dl Direct Bilirubin 0.00mg/dl Indirect Bilirubin 0.4mg/dl Aspartate Amino Transf (AST/SGOT) 194IU/L Alanine Aminotransferase (ALT/SGPT) 209IU/L Alkaline Phosphatase 237IU/L Total Protein 7.2g/dl Albumin 4.0g/dl Globulin 3.20g/dl Albumin/Globulin Ratio 1.25 Lipase 67U/L Current Medications Medications (Trade) Dose Ordered Sig/Kaur Route PRN Reason Start Time Stop Time Status Last Admin Dose Admin Sodium Chloride (NS) 1,000 ml @ 1,000 mls/hr Q1H STAT IV 07/25/17 08:58 07/25/17 09:57 DC 07/25/17 09:24 Ondansetron HCl (Zofran Inj) 4 mg ONCE STAT IV 07/25/17 08:58 07/25/17 09:17 DC 07/25/17 09:24 Famotidine (Pepcid) 40 mg ONCE STAT PO 07/25/17 08:58 07/25/17 09:17 DC 07/25/17 09:24 Miscellaneous Medication (Gi Cocktail (2)) 40 ml ONCE STAT PO 07/25/17 08:58 07/25/17 09:17 DC 07/25/17 09:24 Belladonna/ Phenobarbital () 2 tab ONCE STAT PO 07/25/17 08:58 07/25/17 09:17 DC 07/25/17 09:24 Ketorolac Tromethamine (Toradol) 15 mg ONCE STAT IV 07/25/17 08:58 07/25/17 09:17 DC 07/25/17 09:24 Procedures/MDM IV line was established patient was placed on bobbin disker rhythm strip revealed a sinus rhythm at 80 bpm with upright P and T waves. Patient was afebrile. I administered 1 L of normal saline intravenously, Zofran 4 mg IV, Toradol 15 mg IV, famotidine 40 mg p.o. and a GI cocktail 30 cc p.o. with good response. Gallbladder ultrasound revealed a large stone in the gallbladder. Please refer to radiologist dictation for full report. CBC and electrolytes were normal liver function tests revealed elevated alkaline phosphatase and transaminitis.Urine analysis negative for infection. Patient has continued symptomatology and may have early cholecystitis given her symptoms, physical examination, labs and ultrasound findings. She will be admitted for continued pain management and surgical consultation. Surgeon was paged although he is in the OR at this time and will call back when he can. Departure Diagnosis: Primary Impression: Abdominal pain Qualified Code: R10.11 - Right upper quadrant abdominal pain Additional Impressions: Cholelithiasis Qualified Code: K80.71 - Calculus of gallbladder and bile duct with obstruction without cholecystitis Transaminitis Condition: JENNIFER Bonilla MD Jul 25, 2017 14:16
[2017-07-25 14:30] VITALS: Ht 170.2 cm; Wt 74.7 kg
--- NOTE | 2017-07-25 15:25 | CONS ---
Date/Time of Note Date/Time of Note DATE: 07/25/17 TIME: 15:17 Assessment/Plan Assessment/Plan Additional Assessment/Plan Assessment * Abdominal pain * Cholecystolithiasis with bile sludge * Elevated transaminases Plan * Pain control * MRCP * Trend transaminases * NPO * Case discussed with Dr Cabral * Further ordes will depend on clinical course Consultation Date/Type/Reason Admit Date/Time Jul 25, 2017 at 12:09 Date of Consultation: Jul 25, 2017 Type of Consultation: gastroenterology Reason for Consultation elevated transaminase,gallstone Referring Provider: CARLEE RILEY MD Hx of Present Illness 52 year old female presented in the emergency room complaining of right upper quadrant pain with nausea and vomiting x 2 days.She denies any cheat pain, shortness of breath fever.Patient claims to have been diagnosed with gallstones 2 year s ago/Emergency room workup revealed elevated transaminases AST 194,ALT 209,alkaline phosphatase 237 and wbc 8.7.Ultrasound revealed large calcified stone with sludge and cbd 3 mm.Presently patient still with abdominal pain Constitutional: improved, no complaints Eyes: no complaints ENT: no complaints Respiratory: no complaints Cardiovascular: no complaints Gastrointestinal: no complaints, pain Genitourinary: no complaints Musculoskeletal: no complaints Skin: no complaints Neurologic: no complaints Endocrine: no complaints Lymphatic: no complaints Psychological: nl mood/affect, no complaints Immunologic: no complaints Past Medical History Medical History: other (gallstone) Past Surgical History Past Surgical Hx: no surgical history Family History Significant Family History: no pertinent family hx Social History Alcohol Use: sober Smoking Status: Never smoker Drug Use: none Exam/Review of Systems Vital Signs Vitals Vital Signs Date Time Temp Pulse Resp B/P Pulse Ox O2 Delivery O2 Flow Rate FiO2 07/25/17 14:02 98.4 74 18 106/72 99 07/25/17 12:49 Room Air Exam Constitutional: alert, oriented, well developed Psych: nl mood/affect, no complaints Head: atraumatic, normocephalic Eyes: EOMI, PERRL, nl conjunctiva, nl lids, nl sclera ENMT: nl external ears & nose, nl lips & teeth, nl nasal mucosa & septum Neck: non-tender, supple Respiratory: clear to auscultation, normal air movement Cardiovascular: nl pulses, regular rate and rhythm Gastrointestinal: nl liver, spleen, soft, tender (right upper quadrant), No rebound or guarding Musculoskeletal: nl extremities to inspection, nl gait and stance Extremities: normal pulses Neurological: NIGHT WORKER II-XII intact, nl mental status, nl speech, nl strength Skin: nl turgor, No rash or lesions Lymph: nl lymph nodes Results Result Diagram: 07/25/1710 07/25/17 0910 Results 24 hrs Laboratory Tests Test 07/25/17 09:10 White Blood Count 8.9 Red Blood Count 4.19 L Hemoglobin 12.6 Hematocrit 36.3 L Mean Corpuscular Volume 86.6 Mean Corpuscular Hemoglobin 30.1 Mean Corpuscular Hemoglobin Concent 34.7 Red Cell Distribution Width 13.5 Platelet Count 302 Mean Platelet Volume 8.7 Neutrophils % 68.1 Lymphocytes % 18.3 Monocytes % 11.6 H Eosinophils % 0.8 Basophils % 0.6 Nucleated Red Blood Cells % 0.0 Neutrophils # (Manual) 6.1 Lymphocytes # 1.6 Monocytes # 1.0 H Eosinophils # 0.1 Basophils # 0.1 Nucleated Red Blood Cells # 0.0 Urine Color STRAW Urine Clarity CLEAR Urine pH 8.0 Urine Specific [place] 1.002 L Urine Ketones NEGATIVE Urine Nitrite NEGATIVE Urine Bilirubin NEGATIVE Urine Urobilinogen NEGATIVE Urine Leukocyte Esterase NEGATIVE Urine Microscopic RBC 1 Urine Microscopic WBC 0 Urine Hemoglobin 2+ H Urine Glucose NEGATIVE Urine Total Protein NEGATIVE Sodium Level 143 Potassium Level 3.3 L Chloride Level 105 Carbon Dioxide Level 27 Anion Gap 14 Blood Urea Nitrogen 9 Creatinine 0.63 Glucose Level 99 Calcium Level 9.3 Total Bilirubin 0.4 Direct Bilirubin 0.00 Indirect Bilirubin 0.4 Aspartate Amino Transf (AST/SGOT) 194 H Alanine Aminotransferase (ALT/SGPT) 209 H Alkaline Phosphatase 237 H Total Protein 7.2 Albumin 4.0 Globulin 3.20 Albumin/Globulin Ratio 1.25 Lipase 67 MAINE MUNOZ NP Jul 25, 2017 15:25
--- NOTE | 2017-07-25 15:55 | HP ---
Date/Time of Note Date/Time of Note DATE: 07/25/17 TIME: 15:44 Assessment/Plan VTE Prophylaxis VTE Prophylaxis Intervention: SCD's Assessment/Plan Chief Complaint/Hosp Course 52 yo female with h/o cholelithiasis and migraines who presents with abdominal pain over the past few days. She has been found to have elevated transaminases and large gall stone on RUQ US, without wall thickening, ductal dilation, or pericholecystic fluid Abdominal pain w transaminitis: - Likely this is symptomatic cholelithiasis - She does not have fever, leukocytosis or imaging findings to suggest cholecystitis - Surgical consult per Dr Brown - Given lack of acute findings on US, must consider alternative etiologies of transaminitis: will send iron studies, viral serologies for now and obtain MRCP NPO for now Problems: HPI/ROS Admit Date/Time Admit Date/Time Jul 25, 2017 at 12:09 Hx of Present Illness 52 yo female with h/o cholelithiasis, migraines presenting with abdominal pain over past couple days Patient with known gall stones previously. Here in 2015 with US showing nonobstructing stones. Intermittent colicy abd pain over past years. Over past couple days much more severe. Denies any fevers, though does report "chills". Tolerating normal PO. Pain is intermittent, does not seem worse w eating. Normal bowel habits. Pain to my exam and history is more diffuse and lower quadrants but not localized to RUQ. In ED found to have elevated transaminases and gall stones on US without pericholecystic fluid or wall thickening, normal ducts. Comfortable when seen by me on the floor ROS Eyes: no complaints ENT: no complaints Respiratory: no complaints Cardiovascular: no complaints Gastrointestinal: no complaints, pain Genitourinary: no complaints Musculoskeletal: no complaints Skin: no complaints Neurologic: no complaints Lymphatic: no complaints Psychological: nl mood/affect, no complaints Immunologic: no complaints PMH/Family/Social Past Medical History Medical History: gallstones, other (gallstone) Past Surgical History Past Surgical Hx: no surgical history Family History Significant Family History: no pertinent family hx Social History Alcohol Use: sober Smoking Status: Never smoker Drug Use: none Exam/Review of Systems Vital Signs Vitals Vital Signs Date Time Temp Pulse Resp B/P Pulse Ox O2 Delivery O2 Flow Rate FiO2 07/25/17 14:02 98.4 74 18 106/72 99 07/25/17 12:49 Room Air Exam Exam Very comfortable appearing, no distress Non toxic RRR, no murmus, flat neck veins Lungs are clear, nonlabored respirations no splinting Abdomen is soft, nontender, no distended and murphys sign is negative Extremities are warm without edema RUQ U/S showed large gall stone without wall thickening or fluid Labs Result Diagram: 07/25/17 0910 07/25/17 0910 CARLEE RILEY MD Jul 25, 2017 15:55
[2017-07-25] MEDS ORDERED: NACL 0.9% 3 ML SYG IV SCH (16:30)
[2017-07-25] MEDS ORDERED: HYDROCODONE/APAP (5/325) TAB PO PRN (16:30)
[2017-07-25 17:02] LABS: HAAIG REFLEX REFLEX FILED
--- NOTE | 2017-07-25 17:04 | CONS ---
Date/Time of Note Date/Time of Note DATE: 07/25/17 TIME: 17:03 Assessment/Plan Assessment/Plan Additional Assessment/Plan [facility] INPATIENT CONSULTATION NOTE DATE OF SERVICE: 07/25/2017 PLACE OF SERVICE: [facility], sixth floor ASSESSMENT AND PLAN: A very-pleasant 52-year-old lady with comorbidity of class I obesity as well as migraine headaches, presenting with abdominal pain of unclear etiology. Since the pain is mainly on the left side, the patient will need further workup in the form of gastroenterology consultation with consideration for upper endoscopy, possible lower endoscopy, and CT scan of abdomen and pelvis. Patient also has significant liver function and injury parameters are abnormalities which are likely due to her fatty liver disease, but potentially also due to stone disease in the bile duct. For this reason an MRCP is indicated. Finally, her gallbladder is full stones and since this is her second visit to our hospital, I would recommend that she considers undergoing semi-elective or elective laparoscopic cholecystectomy. Note that this was also recommended to her during her last visit with us in the emergency department last year. I explained all of this to the patient (no family present during my discussions with the patient) and answered all questions. Patient appeared to understand and agreed with the plans. With above assessment, I've recommended the followin. CT scan of abdomen and pelvis with IV and oral contrast 2. MRCP 3. GI consultation 4. Keep in-house 5. Consideration for laparoscopic cholecystectomy, perhaps towards the end of this admission or electively as an outpatient Thank you very much for having me involved in the care of this very pleasant patient and wonderful family. If you have any questions, please feel free to contact me at [phone]. Nature of presenting problem: Moderate to high severity Please note that, given the extensive number of diagnoses or management options , the extensive amount and/or complexity of data needed to be reviewed, and high risk of complications and/or morbidity or mortality, this qualifies as high complexity type of decision-making. Disclaimer: Inadvertent spelling and grammatical errors are likely due to EHR/ dictation software use and do not reflect on the quality of delivered patient care. Also, please note that the electronic time recorded on this node does not necessarily reflect the actual time of the visit. Updated clinical summary: A very-pleasant 52-year-old lady with comorbidity of class I obesity as well as migraine headaches, presenting to [facility] through the emergency department on 07/25/2017 with abdominal pain of unclear etiology. Comorbidities: 1. Class I obesity 2. Migraine headaches 3. Known cholelithiasis 4. Likely hepatic steatosis with possible steatohepatitis versus possible choledocholithiasis 5. Hysterectomy for fibroids CONSULTATION REQUESTED BY: Cody Hull MD HISTORY OF PRESENT ILLNESS: The patient is a very pleasant 52-year-old lady with above-mentioned comorbidities whom we were kindly asked consult regarding management of her gallbladder. Patient reported having abdominal pain associated with mild nausea but no vomiting. Pain is mainly in the left upper quadrant with some radiation to her left shoulder. No significant pain in the right upper quadrant. She does report having bloating with ingestion of fatty foods, but no pain including no right upper quadrant pain. No diarrhea and no blood in the stool or urine. She has intermittent constipation. No other major complaints. ALLERGIES: NO KNOWN DRUG ALLERGIES MEDICATIONS Documented in the electronic records and reviewed by me. Please see the electronic records for details, as well as details for inpatient medications which were also reviewed by me. SOCIAL HISTORY: The patient lives with family.-Tob;-ETOH;-IVDU FAMILY HISTORY: There are no significant medical, surgical or oncologic issues in the family as reported by the patient or reflected in the chart. REVIEW OF SYSTEMS: Other than mentioned above, there were no other pertinent positives or pertinent negatives in an otherwise complete 14 point review of systems. PHYSICAL EXAMINATION GENERAL: The patient appears to be a very pleasant lady of descent lying in bed, appearing stated age, and otherwise in no acute distress. BMI: Not recorded but patient appears to be a class I obese patient VITAL SIGNS: AVSS (please also see auto important data if available as well as the electronic records) HEENT: Normocephalic and atraumatic. Extraocular muscles and hearing are grossly intact bilaterally and symmetrically. Sclerae are nonicteric. Oral cavity is clear; oral mucosa appear to be pink and moist. Dentition: fair. NECK: Supple. There is no lymphadenopathy or JVD. There is no submental, submandibular or supraclavicular lymphadenopathy. CHEST: Rises symmetrically with each breath; patient is breathing comfortably. There are no audible wheezes, rales or rhonchi on the gross exam. HEART: Pulse is regular and palpable on the right wrist. Capillary refill is normal. Carotid pulses are palpable bilaterally and symmetrically in the neck. EXTREMITIES: Lower extremities contain no pitting edema around the ankles bilaterally and symmetrically. ABDOMEN: Abdomen is soft, nontender in the right upper quadrant and mildly tender in the left upper quadrant and nondistended. No evidence of ascites, organomegaly, caput medusae, engorged subcutaneous veins, or other abnormalities. There are no peritoneal signs or guarding. SKIN: Appears to be pink and feels warm to touch. NEUROLOGIC: Awake, alert, and follows commands appropriately. LABORATORY DATA: See below IMAGING: See electronic chart. Please note that I've personally reviewed all pertinent available images and I agree in general with their overall reported findings. Consultation Date/Type/Reason Admit Date/Time Jul 25, 2017 at 12:09 Constitutional: improved, no complaints Eyes: no complaints ENT: no complaints Respiratory: no complaints Cardiovascular: no complaints Gastrointestinal: no complaints, pain Genitourinary: no complaints Musculoskeletal: no complaints Skin: no complaints Neurologic: no complaints Endocrine: no complaints Lymphatic: no complaints Psychological: nl mood/affect, no complaints Immunologic: no complaints Past Medical History Medical History: gallstones, other (gallstone) Past Surgical History Past Surgical Hx: no surgical history Social History Alcohol Use: sober Smoking Status: Never smoker Drug Use: none Exam/Review of Systems Vital Signs Vitals Vital Signs Date Time Temp Pulse Resp B/P Pulse Ox O2 Delivery O2 Flow Rate FiO2 07/25/17 14:02 98.4 74 18 106/72 99 07/25/17 12:49 Room Air Results Result Diagram: 07/25/17 0910 07/25/17 0910 Results 24 hrs Laboratory Tests Test 07/25/17 09:10 07/25/17 16:29 White Blood Count 8.9 Red Blood Count 4.19 L Hemoglobin 12.6 Hematocrit 36.3 L Mean Corpuscular Volume 86.6 Mean Corpuscular Hemoglobin 30.1 Mean Corpuscular Hemoglobin Concent 34.7 Red Cell Distribution Width 13.5 Platelet Count 302 Mean Platelet Volume 8.7 Neutrophils % 68.1 Lymphocytes % 18.3 Monocytes % 11.6 H Eosinophils % 0.8 Basophils % 0.6 Nucleated Red Blood Cells % 0.0 Neutrophils # (Manual) 6.1 Lymphocytes # 1.6 Monocytes # 1.0 H Eosinophils # 0.1 Basophils # 0.1 Nucleated Red Blood Cells # 0.0 Urine Color STRAW Urine Clarity CLEAR Urine pH 8.0 Urine Specific [place] 1.002 L Urine Ketones NEGATIVE Urine Nitrite NEGATIVE Urine Bilirubin NEGATIVE Urine Urobilinogen NEGATIVE Urine Leukocyte Esterase NEGATIVE Urine Microscopic RBC 1 Urine Microscopic WBC 0 Urine Hemoglobin 2+ H Urine Glucose NEGATIVE Urine Total Protein NEGATIVE Sodium Level 143 Pending Potassium Level 3.3 L Pending Chloride Level 105 Pending Carbon Dioxide Level 27 Pending Anion Gap 14 Pending Blood Urea Nitrogen 9 Pending Creatinine 0.63 Pending Glucose Level 99 Pending Calcium Level 9.3 Pending Total Bilirubin 0.4 Pending Direct Bilirubin 0.00 Pending Indirect Bilirubin 0.4 Pending Aspartate Amino Transf (AST/SGOT) 194 H Pending Alanine Aminotransferase (ALT/SGPT) 209 H Pending Alkaline Phosphatase 237 H Pending Total Protein 7.2 Pending Albumin 4.0 Pending Globulin 3.20 Pending Albumin/Globulin Ratio 1.25 Pending Lipase 67 Ferritin Pending Hepatitis B Surface Antigen Pending Hepatitis B Core Total Antibody Pending Hepatitis C Antibody Pending Medications Medications Current Medications Acetaminophen/ Hydrocodone Bitart ([place] (5/325)) 1 tab Q6H PRN PO MODERATE PAIN LEVEL 4-6; Start 07/25/17 at 16:30 MARY KAY ACOSTA M.D. Jul 25, 2017 17:04
[2017-07-25 17:27] LABS: IRON 33 ug/dl (35-150)
[2017-07-25 17:29] LABS: ALANINE AMINOTRANSFERASE 183 IU/L (13-69); ALBUMIN 3.6 g/dl (3.3-4.9); ALBUMIN/GLOBULIN RATIO 1.28; ALKALINE PHOSPHATASE 229 IU/L (42-121); ANION GAP 11 (8-16); ASPARTATE AMINO TRANSFERASE 135 IU/L (15-46); BILIRUBIN,INDIRECT 0.3 mg/dl (0-1.1); BILIRUBIN,TOTAL 0.3 mg/dl (0.2-1.3); BLOOD UREA NITROGEN 8 mg/dl (7-20); CALCIUM 9.1 mg/dl (8.4-10.2); CARBON DIOXIDE 27 mmol/L (21-31); CHLORIDE 107 mmol/L (97-110); CREATININE 0.63 mg/dl (0.44-1.00); GLUCOSE 85 mg/dl (70-220); POTASSIUM 3.6 mmol/L (3.5-5.1); SODIUM 141 mmol/L (135-144); TOTAL PROTEIN 6.4 g/dl (6.1-8.1)
[2017-07-25] MEDS ORDERED: BARIUM SULF 2% 450 ML BTL (BERRY SMOOTHIE) PO SCH (17:30)
[2017-07-25 17:37] LABS: TOTAL IRON BINDING CAPACITY 270 ug/dl (241-421)
[2017-07-25 18:06] LABS: FERRITIN 61.3 ng/ml (11.1-264.0)
[2017-07-25 18:17] LABS: HEPATITIS B CORE ANTIBODY NEGATIVE (NEGATIVE)
[2017-07-25 19:55] VITALS: BP 113/72; RESP 18
[2017-07-25] MEDS: HYDROmorphONE 1 MG/ML SYG IV PRN (21:11)
[2017-07-25] MEDS: DEXTROSE 5%-0.45% NACL 1,000 ML IV SCH (21:11)
[2017-07-25] MEDS: ONDANSETRON 4 MG INJ IV PRN (21:13)
[2017-07-25] MEDS ORDERED: SOD CHLORIDE 0.9% 100 ML ONE (21:59)
[2017-07-25] MEDS ORDERED: IOHEXOL 300MG/ML 150 ML BTL ONE (21:59)
[2017-07-26] VITALS (15 sets, daily range): BP systolic 98–119; BP diastolic 51–64; PULSE 92–98; RESP 13–18
--- NOTE | 2017-07-26 00:16 | RADRPT ---
PROCEDURE: CT Abdomen with and without contrast. CLINICAL INDICATION: Abdominal pain. TECHNIQUE: CT scan of the abdomen and pelvis with contrast was performed on a multi-detector high -resolution CT scanner. The patient was scanned before and after the uncomplicated administration o f 100 cc of Omnipaque 300 intravenous contrast. Coronal and sagittal reformatted images were obtain ed from the axial source images. Images were reviewed on a high-resolution PACS workstation. One or more of the following dose reduction techniques were used: - Automated exposure control. - Adjustment of the mA and/or kV according to patient size. - Use of iterative reconstruction technique. Exam CTD/vol = 11.94 mGy. Total exam DLP = 1292.19 mGy-cm. COMPARISON: None. FINDINGS: Evaluation of the lung bases demonstrates mild bibasilar atelectasis. There is a tiny calcified gran uloma within the left lower lobe. Abdomen: The liver is normal in size. There is no focal mass or dilatation of the biliary tree. T he gallbladder is not distended. There is a small 2.3 cm isodense gallstone identified. The spleen, pancreas and bilateral adrenal glands are within normal limits. Bilateral kidneys are normal in si ze with symmetric enhancement. There is no radiopaque renal or ureteral calculus identified. There is a small, poorly defined area of decreased enhancement within the mid right kidney with mild temitope cent stranding. There is a small hypodense lesion within the mid left kidney. There is no hydronephr osis or hydroureter. There is no retroperitoneal adenopathy. The abdominal aorta is of normal davis hank. The oral contrast reaches the transverse colon. There is no bowel obstruction or free air. A luis manuel l appendix is identified. There is no diverticulosis or diverticulitis. There is no ascites. Pelvis: The bladder is unremarkable. The uterus is absent. There is mild pelvic free fluid. Ther e is no significant pelvic adenopathy or free fluid. Evaluation of the osseous structures demonstrates no suspicious lytic or blastic lesion. IMPRESSION: Small, poorly defined area of decreased enhancement within the mid right kidney with mild adjacent s tranding could suggest focal pyelonephritis. Clinical correlation is needed. There is also a small h ypodense lesion within the mid left kidney. Follow-up is recommended to exclude underlying mass lesi on. Cholelithiasis. Mild pelvic free fluid. Status post hysterectomy. Mild bibasilar atelectasis. .Greg Gomez MD, MD Date Time Electronically viewed and signed by .Greg Gomez MD, MD on 07/26/2017 00:16 .T/
[2017-07-26] MEDS: DEXTROSE 5%-0.45% NACL 1,000 ML IV SCH ×2 (05:30→11:06)
[2017-07-26 06:31] LABS: BASOPHIL # 0.1 10^3/ul (0.0-0.1); BASOPHILS % 0.6 % (0.0-2.0); EOSINOPHILS # 0.1 10^3/ul (0.0-0.5); EOSINOPHILS % 0.9 % (0.0-7.0); HEMATOCRIT 34.5 % (37.0-47.0); HEMOGLOBIN 11.8 g/dl (12.0-16.0); LYMPHOCYTES # 1.8 10^3/ul (0.8-2.9); MEAN CORPUSCULAR HEMOGLOBIN 29.9 pg (29.0-33.0); MEAN CORPUSCULAR HGB CONC 34.2 g/dl (32.0-37.0); MEAN CORPUSCULAR VOLUME 87.6 fl (82.0-101.0); MONOCYTE # 0.9 10^3/ul (0.3-0.9); MONOCYTES % 9.5 % (0.0-11.0); NEUTROPHILS % 68.6 % (39.0-77.0); PLATELET COUNT 292 10^3/UL (140-415); RED BLOOD COUNT 3.94 10^6/ul (4.20-5.40); RED CELL DISTRIBUTION WIDTH 13.6 % (11.5-14.5); WHITE BLOOD COUNT 9.1 10^3/ul (4.8-10.8)
[2017-07-26 07:02] LABS: INR 1.1; PROTIME 14.2 Sec (12.2-14.2); PT RATIO 1.1
[2017-07-26 07:03] LABS: PARTIAL THROMBOPLASTIN TIME 31.5 Sec (25.0-35.0)
[2017-07-26 07:12] LABS: ALBUMIN 3.6 g/dl (3.3-4.9); ALBUMIN/GLOBULIN RATIO 1.2; BILIRUBIN,INDIRECT 0.3 mg/dl (0-1.1); BILIRUBIN,TOTAL 0.3 mg/dl (0.2-1.3); CALCIUM 8.8 mg/dl (8.4-10.2); CREATININE 0.59 mg/dl (0.44-1.00); POTASSIUM 3.3 mmol/L (3.5-5.1); TOTAL PROTEIN 6.6 g/dl (6.1-8.1)
--- NOTE | 2017-07-26 07:41 | RADRPT ---
PROCEDURE: MRCP without contrast. CLINICAL INDICATION: Right upper quadrant abdominal pain. TECHNIQUE: Routine MRCP was obtained without the administration of intravenous contrast. COMPARISON: Ultrasound, 07/25/2017. FINDINGS: There is a single stone is identified in the gallbladder without gallbladder wall thickening or jose cholecystic inflammation. No intra- or extra-hepatic biliary dilatation is identified. There is no filling defect or choledocholithiasis. There is no biliary stricture. The pancreatic duct is within normal limits. IMPRESSION: A single stone identified in the gallbladder without gallbladder wall thickening/pericholecystic inf lammation. No radiologic evidence of biliary dilatation, choledocholithiasis, or biliary obstruction. RPTAT: EE .Jomar Barillas MD, MD Date Time Electronically viewed and signed by .Jomar Barillas MD, on 07/26/2017 07:46 .C/
[2017-07-26] MEDS: HYDROmorphONE 1 MG/ML SYG IV PRN (08:59)
[2017-07-26] MEDS: ONDANSETRON 4 MG INJ IV PRN ×2 (12:52→16:25)
[2017-07-26] MEDS ORDERED: POTASSIUM CHLORIDE 30 MEQ in DEXTROSE 5% 250 ML IVPB ONE (13:00)
[2017-07-26] MEDS ORDERED: PROPOFOL 20 ML ONE (13:59)
[2017-07-26] MEDS ORDERED: ROPIVACAINE 0.2% 20 ML VIAL ONE (13:59)
[2017-07-26] MEDS ORDERED: ROCURONIUM 50 MG INJ ONE (13:59)
[2017-07-26] MEDS ORDERED: FENTAnyl 50 MCG/ML VIAL ONE ×2 (13:59→15:29)
[2017-07-26] MEDS ORDERED: MIDAZOLAM 1 MG/ML 2 ML INJ ONE (13:59)
--- NOTE | 2017-07-26 14:03 | HPN ---
Date/Time of Note Date/Time of Note DATE: 07/26/17 TIME: 14:03 Interval H&P Admission Note Pt. seen H&P reviewed: No system changes Pt. seen H&P reviewed. No system changes (I attest that I have seen and examined the patient and reviewed the operation in detail, as well as its risks , benefits and alternatives of the operation). I attest that I have seen and examined the patient and reviewed in detail the operation, and its associated risks, benefits and alternative. I have answered all the patient's questions to the best of my ability and the patient wishes to proceed. Please refer to rest of electronic medical record for additional updates. MARY KAY ACOSTA M.D. Jul 26, 2017 14:03
[2017-07-26 14:11] LABS: ADD UMIC YES; UR ASCORBIC ACID NEGATIVE (NEGATIVE); UR BACTERIA FEW /HPF (NONE SEEN); UR BILIRUBIN (Dip) NEGATIVE (NEGATIVE); UR BLOOD (Dip) 2+ mg/dL (NEGATIVE); UR CLARITY CLOUDY (CLEAR); UR COLOR YELLOW (YELLOW); UR GLUCOSE (Dip) NEGATIVE (NEGATIVE); UR KETONES (Dip) TRACE mg/dL (NEGATIVE); UR LEUKOCYTE ESTERASE (Dip) 3+ Leu/ul (NEGATIVE); UR MUCUS MODERATE /HPF (NONE SEEN); UR NITRITE (Dip) NEGATIVE (NEGATIVE); UR RBC 16 /HPF (0-5); UR SPECIFIC GRAVITY (Dip) 1.014 (1.003-1.030); UR SQUAMOUS EPITHELIAL CELL FEW /HPF (FEW); UR TOTAL PROTEIN (Dip) NEGATIVE (NEGATIVE); UR UROBILINOGEN (Dip) NEGATIVE (NEGATIVE)
[2017-07-26] MEDS ORDERED: BUPIVACAINE 0.5%/EPI (SDV) 10 ML INJ ONE (14:17)
[2017-07-26] MEDS ORDERED: CEFAZOLIN 1 GM INJ ONE (15:02)
[2017-07-26] MEDS ORDERED: ESMOLOL 10 ML ONE (15:28)
[2017-07-26] MEDS ORDERED: DIPHENHYDRAMINE 50 MG INJ IV PRN (15:30)
[2017-07-26] MEDS ORDERED: HYDROmorphONE (0.2 MG/ML) 10ML SYG IV PRN ×3 (15:30)
[2017-07-26] MEDS ORDERED: FENTAnyl 50 MCG/ML VIAL IV PRN ×3 (15:30)
[2017-07-26] MEDS ORDERED: hydrALAzine 20 MG INJ IV PRN (15:30)
[2017-07-26] MEDS ORDERED: EPHEDrine SULFATE 50 MG/5 ML SYG IV PRN (15:30)
[2017-07-26] MEDS ORDERED: LABETALOL HCL 20MG INJ IV PRN (15:30)
[2017-07-26] MEDS ORDERED: METOCLOPRAMIDE 10 MG INJ IV PRN (15:30)
[2017-07-26] MEDS ORDERED: MEPERIDINE 25 MG INJ IV PRN (15:30)
[2017-07-26] MEDS ORDERED: ONDANSETRON 4 MG INJ IV PRN (15:30)
[2017-07-26] MEDS ORDERED: ONDANSETRON 4 MG INJ ONE (15:39)
[2017-07-26] MEDS ORDERED: DEXAMETHASONE 4 MG/ML 1 ML INJ ONE (15:39)
[2017-07-26] MEDS ORDERED: SUGAMMADEX SODIUM 200 MG/2 ML VIAL IV ONE (15:39)
[2017-07-26] MEDS ORDERED: KETOROLAC 30 MG INJ ONE (15:39)
[2017-07-26] MEDS ORDERED: METOCLOPRAMIDE 10 MG INJ ONE (15:39)
--- NOTE | 2017-07-26 15:57 | PN ---
Date/Time of Note Date/Time of Note DATE: 07/26/17 TIME: 15:52 Assessment/Plan VTE Prophylaxis VTE Prophylaxis Intervention: LMWH Lines/Catheters IV Catheter Type (from [facility]): Peripheral IV Assessment/Plan Chief Complaint/Hosp Course 52 yo female with h/o cholelithiasis and migraines who presents with abdominal pain over the past few days. She has been found to have elevated transaminases and large gall stone on RUQ US, without wall thickening, ductal dilation, or pericholecystic fluid. Lie Cholelithiasis: - Possible this is symptomatic cholelithiasis. She does not have fever, leukocytosis or imaging findings to suggest cholecystitis - Cholecystectomy per Dr Brown UTI: - Markedly positive UA in setting of lower abdominal pain and imaging findings which correlate to pyelo, though no clear urinary symptoms, it is possible UTI is causign abdominal sypmtoms - Will give ceftriaxone trial Transaminitis: - Given lack of acute findings on US, must consider alternative etiologies of transaminitis - Iron studies normal, no steatohepatitis on imaging, viral serologies normal. Per chart review, transaminitis is long standing: infiltrative liver dz, autoimmune, etc must be considered: - Autoimmune labs, [place], TSH - Biopsy in OR per Dr Brown NPO for now Problems: Subjective 24 Hr Interval Summary Free Text/Dictation Patient continues to complain of lower abdominal diffuse pain, LLQ seems worst Nothing on CT UA is markedly positive with pyuria, LE, etc To OR for lap amarjit today Exam/Review of Systems Vital Signs Vitals Vital Signs Date Time Temp Pulse Resp B/P Pulse Ox O2 Delivery O2 Flow Rate FiO2 07/26/17 14:03 98.9 77 18 117/62 96 07/25/17 12:49 Room Air Intake and Output 07/25/17 07/25/17 07/26/17 15:00 23:00 07:00 Intake Total 800 ml Balance 800 ml Exam Nontoxic Comfortable appearing Clear lugns, nonlabored RRR, no m/r/g Abdomen soft nt nd, no RUQ tenderness, some mild tenderness in LLQ Results Result Diagram: 07/26/17 0524 07/26/17 0524 Results 24 hrs Laboratory Tests Test 07/25/17 16:25 07/25/17 16:29 07/26/17 05:22 07/26/17 05:24 Iron Level 33 L Total Iron Binding Capacity 270 Percent Iron Saturation 12 L Serum HCG, Qualitative NEGATIVE Sodium Level 141 141 Potassium Level 3.6 3.3 L Chloride Level 107 104 Carbon Dioxide Level 27 27 Anion Gap 11 13 Blood Urea Nitrogen 8 8 Creatinine 0.63 0.59 Glucose Level 85 102 Hemoglobin A1c 5.1 Calcium Level 9.1 8.8 Ferritin 61.3 Total Bilirubin 0.3 0.3 Direct Bilirubin 0.00 0.00 Indirect Bilirubin 0.3 0.3 Aspartate Amino Transf (AST/SGOT) 135 H 81 H Alanine Aminotransferase (ALT/SGPT) 183 H 140 H Alkaline Phosphatase 229 H 213 H Total Protein 6.4 6.6 Albumin 3.6 3.6 Globulin 2.80 3.00 Albumin/Globulin Ratio 1.28 1.20 Hepatitis B Surface Antigen NEGATIVE Hepatitis B Core Total Antibody NEGATIVE Hepatitis C Antibody NEGATIVE Gamma Glutamyl Transpeptidase 318 H Thyroid Stimulating Hormone (TSH) 0.473 Free Thyroxine 0.88 White Blood Count 9.1 Red Blood Count 3.94 L Hemoglobin 11.8 L Hematocrit 34.5 L Mean Corpuscular Volume 87.6 Mean Corpuscular Hemoglobin 29.9 Mean Corpuscular Hemoglobin Concent 34.2 Red Cell Distribution Width 13.6 Platelet Count 292 Mean Platelet Volume 9.0 Neutrophils % 68.6 Lymphocytes % 20.0 Monocytes % 9.5 Eosinophils % 0.9 Basophils % 0.6 Nucleated Red Blood Cells % 0.0 Neutrophils # (Manual) 6.2 Lymphocytes # 1.8 Monocytes # 0.9 Eosinophils # 0.1 Basophils # 0.1 Nucleated Red Blood Cells # 0.0 Prothrombin Time 14.2 Prothrombin Time Ratio 1.1 INR International Normalized Ratio 1.10 Activated Partial Thromboplast Time 31.5 Test 07/26/17 12:30 07/26/17 12:35 Urine Test NEGATIVE Urine Color YELLOW Urine Clarity CLOUDY A Urine pH 6.0 Urine Specific [place] 1.014 Urine Ketones TRACE A Urine Nitrite NEGATIVE Urine Bilirubin NEGATIVE Urine Urobilinogen NEGATIVE Urine Leukocyte Esterase 3+ H Urine Microscopic RBC 16 H Urine Microscopic WBC > 182 H Urine Squamous Epithelial Cells FEW Urine Bacteria FEW A Urine Mucus MODERATE Urine Hemoglobin 2+ H Urine Glucose NEGATIVE Urine Total Protein NEGATIVE Medications Medications Current Medications Acetaminophen/ Hydrocodone Bitart ([place] (5/325)) 1 tab Q6H PRN PO MODERATE PAIN LEVEL 4-6; Start 07/25/17 at 16:30 Ondansetron HCl 4 mg 4 mg Q6H PRN IV NAUSEA AND/OR VOMITING Last administered on 07/26/17 12:52; Admin Dose 4 MG; Start 07/25/17 at 19:30 Dextrose/Sodium Chloride (D5-1/2ns) 1,000 ml @ 100 mls/hr Q10H IV Last administered on 07/26/17 11:06; Admin Dose 100 MLS/HR; Start 07/25/17 at 19:30 Hydromorphone HCl 1 mg 1 mg Q4H PRN IV PAIN Last administered on 07/26/17 08:59 ; Admin Dose 1 MG; Start 07/25/17 at 21:00 Potassium Chloride/Dextrose (KCl/D5W) 265 ml @ 88.333 mls/ hr ONCE ONCE IVPB Last administered on 07/26/17 12:56; Admin Dose 88.333 MLS/HR; Start 07/26/17 at 13:00; Stop 07/26/17 at 15:59 CARLEE RILEY MD Jul 26, 2017 15:57
[2017-07-26] MEDS ORDERED: CEFTRIAXONE 1 GM/50 ML (PMX) 50 ML IVPB SCH (16:00)
--- NOTE | 2017-07-26 16:45 | OPR ---
Date/Time of Note Date/Time of Note DATE: 07/26/17 TIME: 16:44 Operative Report Operative\Procedure Findings [facility] INPATIENT OPERATIVE NOTE PLACE OF SERVICE: [facility] DATE OF SURGERY: 07/26/2017 PREOPERATIVE DIAGNOSIS: 1. Symptomatic cholelithiasis with possible early acute cholecystitis 2. Migraine headaches 3. Known cholelithiasis 4. Likely hepatic steatosis with possible steatohepatitis versus possible choledocholithiasis 5. Hysterectomy for fibroids 6. Class I obesity POSTOPERATIVE DIAGNOSIS: 1. Acute cholecystitis with symptomatic cholelithiasis 2. Migraine headaches 3. Known cholelithiasis 4. Likely hepatic steatosis with possible steatohepatitis versus possible choledocholithiasis 5. Hysterectomy for fibroids 6. Class I obesity OPERATION: 1. Laparoscopic cholecystectomy 2. Laparoscopic core needle liver biopsy (segment 5, 3 cores) SURGEON: Mary Kay Acosta M.D. SKID ADZER: None ANESTHESIA: General endotracheal tube anesthesia ANESTHESIOLOGIST: Lyla Henry M.D. BRIEF SUMMARY: An otherwise uncomplicated laparoscopic cholecystectomy was performed along with core needle liver biopsy with findings of acute cholecystitis and likely hepatic steatosis. Updated clinical summary: A very-pleasant 52-year-old lady with comorbidity of class I obesity as well as migraine headaches, presenting to [facility] through the emergency department on 07/25/2017 with abdominal pain of unclear etiology. Comorbidities: 1. Class I obesity 2. Migraine headaches 3. Known cholelithiasis 4. Likely hepatic steatosis with possible steatohepatitis versus possible choledocholithiasis 5. Hysterectomy for fibroids BRIEF HISTORY: The patient is a very-pleasant 52-year-old lady with comorbidity of class I obesity as well as migraine headaches, presenting to [facility] through the emergency department on 07/25/2017 with abdominal pain of unclear etiology. Due to patient's abnormal liver function and injury parameters, we performed an MRCP which demonstrated presence of no choledocholithiasis. The rest of the exam appeared to be normal with the exception of large stone within the gallbladder. My reasoning included pain from symptomatic cholelithiasis and if the patient continues to have pain postoperatively, that the patient would need gastroenterology evaluation. I met with the patient (no family present during any of my discussions with the patient) and counseled them regarding the possible options of treatment, and I strongly suggested a laparoscopic, possible open cholecystectomy. We reviewed the operation in detail as well as the risks, benefits, alternatives, and expected outcomes of this operation. After careful consideration of all the risks, benefits, and alternatives, the patient appeared to understand those risks and wished to proceed with surgery. For a detailed report of my consultation with patient, please refer to my separate consultation note. STATEMENT OF THE INFORMED CONSENT: The patient appeared to understand the risks of the operation to include, but not be limited to risk of postoperative pain and scar tissue, possible infection or bleeding requiring other interventions such as opening the wound, placement of drainage catheters, or other operative interventions; possible injury to surrounding to structures including bowel, bladder, bile duct, or blood vessels, or solid organs such as liver, kidney, or pancreas requiring other interventions or procedures; possible leakage of bile from surgical clip sites, suture lines, or worse, from common bile duct injury, causing significant increase in morbidity and mortality and requiring multiple interventions including but not limited to, placement of drainage catheters, imaging studies, as well as operative interventions; possible other source of sepsis such as urinary tract infections or pneumonias, or other sources of potentially life threatening problems such as deep venous thrombus formation causing pulmonary embolism, myocardial arrhythmias and infarctions, and even . After careful consideration of all her options, the patient appeared to understand and wished to proceed with surgery. DESCRIPTION OF PROCEDURE: After obtaining informed consent, the patient was brought into the operating room and was placed in a normal supine position, where successful general endotracheal tube anesthesia was performed. The patient 's abdominal skin was prepped and draped, from the nipple line down to the level of the groins, in the usual sterile fashion. Intravenous access was already in place, and appropriately chosen and dosed prophylactic intravenous antimicrobials were administered. We then called a surgical time-out where patient's identification, date of , nature of the operation, allergies, presence of intravenous antimicrobials, presence of needed equipment, and any other concerns were reviewed and agreed upon by all members of the operating room team. We then started the operation by placing a 5-mm skin incision in the right- upper quadrant, subcostal midclavicular line, and introduced a 5-mm [employer] trocar into the peritoneal space, visualizing all the layers of the abdominal wall as we entered. Note that there was no indication of any injury to underlying structures once we entered the peritoneum. We insufflated the abdominal cavity to a maximum pressure of 15 mmHg, again, confirmed lack of any injury to underlying structures prior to visualizing the rest of the abdominal cavity. We found the fundus of the gallbladder to be visible. There was no evidence of malignancy. No evidence of calcifications or significant issues with adhesions, or other abnormalities. There appears to be hepatic steatosis. With this information, we went a head and placed the other trocars under direct visualization, after injecting their sites with 0.25% Marcaine with epinephrine , placing a 5-mm trocar in the umbilical midline area, a 5-mm trocar in the right anterior axillary line, and a 12-mm trocar in the midline subxiphoid region. With our instruments in place, we had excellent visualization and access to the right-upper quadrant. We then we grasped the fundus of the gallbladder and pointed up towards the right-upper quadrant. We were then able to grasp the infundibulum and pull it out in order to expose the critical triangle of Calot. We then placed our usual serosal cuts along the long axis of the gallbladder 1 cm away from its attachment to the liver bed up towards the fundus, and then joined these 2 lines under the infundibulum, taking care not to deliver any energy to underlying structures. Because of the degree of inflammation in the triangle of Calot low and to maximize the degree of safety of the operation, I decided to take the gallbladder top-down which we accomplished using cautery. We then performed meticulous dissection to identify and circumferentially isolate both the cystic duct and cystic artery, prior to transecting them between 2 surgical Endoclips, proximally and one distally on the cystic artery and 3 surgical endoclips proximally and one distally on the cystic duct, transecting both using cold scissors, and only after making sure that these were the only 2 structures going into the gallbladder. We then shaved the gallbladder off the gallbladder bed using cautery, and then delivered it out inside of an EndoCatch bag through the 12-mm trocar site without enlarging the fascia or contaminating the wound. The gallbladder was sent to Pathology for evaluation. Returning to the abdominal cavity, we performed core needle liver biopsy using a [employer] device to take 3 cores from segment 5 of the liver that was sent to pathology for permanent sections. We then ensured that there was adequate hemostasis and bile-stasis prior to removal of all of or equipment, including the pneumoperitoneum, and then reapproximating the 12-mm trocar site with one [id number] 0 Vicryl suture, followed by washing the wounds with copious amounts of normal saline, and then reapproximating the skin using interrupted 4- 0 Monocryl sutures. Light dressing was then applied. At the end of the operation, both the sponge count and needle count were reportedly correct x2. The patient tolerated the procedure without any reported complications. ESTIMATED BLOOD LOSS: 20 mL BLOOD OR BLOOD PRODUCT TRANSFUSIONS: None to my knowledge. SPECIMENS: 1. Gallbladder 2. Core needle liver biopsy, segment 5, 3 cores COMPLICATIONS: None. DISPOSITION: Recovery area. Disclaimer: Inadvertent spelling and grammatical errors are likely due to EHR/ dictation software use and do not reflect on the quality of delivered patient care. MARY KAY ACOSTA M.D. Jul 26, 2017 16:45
[2017-07-26] MEDS ORDERED: DOCUSATE SODIUM 100 MG CAP PO PRN (17:00)
[2017-07-26] MEDS ORDERED: BISACODYL 10 MG SUPP PR PRN (17:00)
[2017-07-26] MEDS ORDERED: HYDROCODONE/APAP (5/325) TAB PO PRN ×2 (17:00)
[2017-07-26] MEDS ORDERED: HYDROmorphONE 1 MG/ML SYG IV PRN ×2 (17:00)
[2017-07-26] MEDS ORDERED: NA PHOSPHATE/BIPHOS 133 ML ENEMA PR PRN (17:00)
[2017-07-26] MEDS: D5W-0.45 NACL + KCL 20 MEQ 1,000 ML IV SCH (17:35)
[2017-07-27 01:21] VITALS: BP 95/58; RESP 18
[2017-07-27] MEDS: D5W-0.45 NACL + KCL 20 MEQ 1,000 ML IV SCH (03:57)
[2017-07-27 06:27] LABS: BASOPHILS % 0.5 % (0.0-2.0); EOSINOPHILS % 0.1 % (0.0-7.0); HEMATOCRIT 32.5 % (37.0-47.0); HEMOGLOBIN 10.8 g/dl (12.0-16.0); LYMPHOCYTES # 1.5 10^3/ul (0.8-2.9); MEAN CORPUSCULAR HEMOGLOBIN 29.3 pg (29.0-33.0); MEAN CORPUSCULAR HGB CONC 33.2 g/dl (32.0-37.0); MEAN CORPUSCULAR VOLUME 88.1 fl (82.0-101.0); MEAN PLATELET VOLUME 9.5 fl (7.4-10.4); MONOCYTE # 0.9 10^3/ul (0.3-0.9); MONOCYTES % 9.6 % (0.0-11.0); NEUTROPHILS % 72.3 % (39.0-77.0); PLATELET COUNT 263 10^3/UL (140-415); RED BLOOD COUNT 3.69 10^6/ul (4.20-5.40); RED CELL DISTRIBUTION WIDTH 13.8 % (11.5-14.5); WHITE BLOOD COUNT 8.9 10^3/ul (4.8-10.8)
[2017-07-27 06:47] LABS: INR 1.1; PROTIME 14.2 Sec (12.2-14.2); PT RATIO 1.1
[2017-07-27 06:48] LABS: PARTIAL THROMBOPLASTIN TIME 30.5 Sec (25.0-35.0)
[2017-07-27 06:57] LABS: ALBUMIN 3.2 g/dl (3.3-4.9); ALBUMIN/GLOBULIN RATIO 1.14; BILIRUBIN,INDIRECT 0.1 mg/dl (0-1.1); BILIRUBIN,TOTAL 0.1 mg/dl (0.2-1.3); CALCIUM 9.2 mg/dl (8.4-10.2); CREATININE 0.54 mg/dl (0.44-1.00); POTASSIUM 3.8 mmol/L (3.5-5.1)
[2017-07-27 07:01] LABS: CALCIUM 9.1 mg/dl (8.4-10.2); MAGNESIUM 2.3 mg/dl (1.7-2.5); PHOSPHORUS 3.3 mg/dl (2.5-4.9)
[2017-07-27 07:06] LABS: IMMUNOGLOBULIN A 195 mg/dl (70-400); IMMUNOGLOBULIN G 888 mg/dl (700-1600); IMMUNOGLOBULIN M 62 mg/dl (40-230)
[2017-07-27 07:21] VITALS: BP 106/68; RESP 18
[2017-07-27] MEDS: FAMOTIDINE 20 MG INJ IV SCH (08:25)
[2017-07-27] MEDS: ENOXAPARIN 40 MG/0.4 ML SYG SC SCH (08:35)
--- NOTE | 2017-07-27 10:49 | PN ---
Date/Time of Note Date/Time of Note DATE: 07/27/17 TIME: 10:45 Assessment/Plan VTE Prophylaxis VTE Prophylaxis Intervention: SCD's Lines/Catheters IV Catheter Type (from Nrsg): Peripheral IV Assessment/Plan Assessment/Plan Assessment * Abdominal pain Cholecystolithiasis with bile sludge S/P cholecystectomy * Obesity * fibroids Plan * continue present management * Will sign off and follow up as needed * case discussed with Dr Cabral Subjective 24 Hr Interval Summary Free Text/Dictation * Course reviewed with RN * Patient seen and examined * S/P cholecystectomy yesterday Exam/Review of Systems Vital Signs Vitals Vital Signs Date Time Temp Pulse Resp B/P Pulse Ox O2 Delivery O2 Flow Rate FiO2 07/27/17 07:21 98.2 65 18 106/68 97 07/26/17 16:59 Room Air 07/26/17 16:19 10.0 Intake and Output 07/26/17 07/26/17 07/27/17 15:00 23:00 07:00 Intake Total 500 ml 1785 ml 1000 ml Output Total 1010 ml 1100 ml Balance 500 ml 775 ml -100 ml Exam Constitutional: alert, oriented Neck: non-tender, supple Respiratory: clear to auscultation, normal air movement Cardiovascular: nl pulses, regular rate and rhythm Gastrointestinal: non-tender, soft Musculoskeletal: nl extremities to inspection, nl gait and stance Extremities: normal pulses Neurological: nl speech, nl strength Skin: nl turgor, No rash or lesions Results Result Diagram: 07/27/17 0516 07/27/17 0516 Results 24 hrs Laboratory Tests Test 07/26/17 12:30 07/26/17 12:35 07/27/17 05:16 Urine Test NEGATIVE Urine Color YELLOW Urine Clarity CLOUDY A Urine pH 6.0 Urine Specific [place] 1.014 Urine Ketones TRACE A Urine Nitrite NEGATIVE Urine Bilirubin NEGATIVE Urine Urobilinogen NEGATIVE Urine Leukocyte Esterase 3+ H Urine Microscopic RBC 16 H Urine Microscopic WBC > 182 H Urine Squamous Epithelial Cells FEW Urine Bacteria FEW A Urine Mucus MODERATE Urine Hemoglobin 2+ H Urine Glucose NEGATIVE Urine Total Protein NEGATIVE White Blood Count 8.9 Red Blood Count 3.69 L Hemoglobin 10.8 L Hematocrit 32.5 L Mean Corpuscular Volume 88.1 Mean Corpuscular Hemoglobin 29.3 Mean Corpuscular Hemoglobin Concent 33.2 Red Cell Distribution Width 13.8 Platelet Count 263 Mean Platelet Volume 9.5 Neutrophils % 72.3 Lymphocytes % 17.0 Monocytes % 9.6 Eosinophils % 0.1 Basophils % 0.5 Nucleated Red Blood Cells % 0.0 Neutrophils # (Manual) 6.4 Lymphocytes # 1.5 Monocytes # 0.9 Eosinophils # 0.0 Basophils # 0.0 Nucleated Red Blood Cells # 0.0 Prothrombin Time 14.2 Prothrombin Time Ratio 1.1 INR International Normalized Ratio 1.10 Activated Partial Thromboplast Time 30.5 Sodium Level 139 Potassium Level 3.8 Chloride Level 107 Carbon Dioxide Level 27 Anion Gap 9 Blood Urea Nitrogen 6 L Creatinine 0.54 Glucose Level 119 Calcium Level 9.2 Phosphorus Level 3.3 Magnesium Level 2.3 Total Bilirubin 0.1 L Direct Bilirubin 0.00 Indirect Bilirubin 0.1 Aspartate Amino Transf (AST/SGOT) 79 H Alanine Aminotransferase (ALT/SGPT) 130 H Alkaline Phosphatase 267 H Total Protein 6.0 L Albumin 3.2 L Globulin 2.80 Albumin/Globulin Ratio 1.14 Immunoglobulin A 195 Immunoglobulin G 888 Immunoglobulin M 62 Medications Medications Current Medications Ondansetron HCl 4 mg 4 mg Q6H PRN IV NAUSEA AND/OR VOMITING Last administered on 07/26/17 16:25; Admin Dose 4 MG; Start 07/25/17 at 19:30 Potassium Chloride/Dextrose/ Sod Cl (D5-1/2ns + KCl 20 Meq) 1,000 ml @ 100 mls/ hr Q10H IV Last administered on 07/27/17 03:57; Admin Dose 100 MLS/HR; Start at 16:36 Acetaminophen/ Hydrocodone Bitart ([place] (5/325)) 1 tab Q4H PRN PO PAIN LEVEL 4 -7 Last administered on 07/26/17 21:47; Admin Dose 1 TAB; Start 07/26/17 at 17:00 Acetaminophen/ Hydrocodone Bitart ([place] (5/325)) 2 tab Q4H PRN PO PAIN LEVEL 7 -10; Start 07/26/17 at 17:00 Hydromorphone HCl (Dilaudid) 0.5 mg Q2 PRN IV PAIN; Start 07/26/17 at 17:00 Hydromorphone HCl (Dilaudid) 1 mg Q2 PRN IV PAIN; Start 07/26/17 at 17:00 Docusate Sodium (Colace) 100 mg BID PRN PO CONSTIPATION; Start 07/26/17 at 17:00 Bisacodyl (Dulcolax Supp) 10 mg BID PRN CO CONSTIPATION; Start 07/26/17 at 17:00 Sodium Biphosphate/ Sodium Phosphate (Fleet Enema) 133 ml BID PRN CO CONSTIPATION; Start 07/26/17 at 17:00 Famotidine (Pepcid Iv) 20 mg DAILY IV Last administered on 07/27/17 08:25; Admin Dose 20 MG; Start 07/27/17 at 09:00 Enoxaparin Sodium (Lovenox) 40 mg DAILY SC Last administered on 07/27/17 08:35 ; Admin Dose 40 MG; Start 07/27/17 at 09:00 MAINE MUNOZ NP Jul 27, 2017 10:49
[2017-07-27 14:35] VITALS: BP 101/58; RESP 18
--- NOTE | 2017-07-27 16:15 | PN ---
Date/Time of Note Date/Time of Note DATE: 07/27/17 TIME: 16:12 Assessment/Plan VTE Prophylaxis VTE Prophylaxis Intervention: LMWH Lines/Catheters IV [facility] (from [facility]): Peripheral IV Assessment/Plan Chief Complaint/Hosp Course 52 yo female with h/o cholelithiasis and migraines who presents with abdominal pain over the past few days. She has been found to have elevated transaminases and large gall stone on RUQ US, without wall thickening, ductal dilation, or pericholecystic fluid. Lie Cholelithiasis: - s/p cholecystectomy yesterday UTI: - Markedly positive UA in setting of lower abdominal pain and imaging findings which correlate to pyelo, though no clear urinary symptoms, it is possible UTI is causign abdominal sypmtoms - Complete brief abx course for uncomplicated UTI Transaminitis: - Given lack of acute findings on US, must consider alternative etiologies of transaminitis - Iron studies normal, no steatohepatitis on imaging, viral serologies normal. Per chart review, transaminitis is long standing: infiltrative liver dz, autoimmune, etc must be considered: - Autoimmune labs, [place], TSH - Biopsy performed in OR per Dr Brown, will need to be followed up likely as outpatient Dc home tomorrow with clinic follow up Problems: Subjective 24 Hr Interval Summary Free Text/Dictation Underwent lap amarjit [email or web address]. Liver biopsy was also performed Today she feels well. Lower abomdinal pain is resolved. Has some surgical site discomfort but mild Exam/Review of Systems Vital Signs Vitals Vital Signs Date Time Temp Pulse Resp B/P Pulse Ox O2 Delivery O2 Flow Rate FiO2 07/27/17 14:35 98.6 71 18 101/58 97 07/26/17 16:59 Room Air 07/26/17 16:19 10.0 Intake and Output 07/26/17 07/26/17 07/27/17 15:00 23:00 07:00 Intake Total 500 ml 1785 ml 1000 ml Output Total 1010 ml 1100 ml Balance 500 ml 775 ml -100 ml Exam Constitutional: alert, oriented, well developed Psych: nl mood/affect, no complaints Head: atraumatic, normocephalic Eyes: EOMI, PERRL, nl conjunctiva, nl lids, nl sclera ENMT: nl external ears & nose, nl lips & teeth, nl nasal mucosa & septum Neck: non-tender, supple Respiratory: clear to auscultation, normal air movement Cardiovascular: nl pulses, regular rate and rhythm Gastrointestinal: nl liver, spleen, non-tender, soft Musculoskeletal: nl extremities to inspection, nl gait and stance Extremities: normal pulses Neurological: DEVELOPMENT VICE PRESIDENT II-XII intact, nl mental status, nl speech, nl strength Skin: nl turgor, No rash or lesions Lymph: nl lymph nodes Results Result Diagram: 07/27/1716 07/27/17 0516 Results 24 hrs Laboratory Tests Test 07/27/17 05:16 White Blood Count 8.9 Red Blood Count 3.69 L Hemoglobin 10.8 L Hematocrit 32.5 L Mean Corpuscular Volume 88.1 Mean Corpuscular Hemoglobin 29.3 Mean Corpuscular Hemoglobin Concent 33.2 Red Cell Distribution Width 13.8 Platelet Count 263 Mean Platelet Volume 9.5 Neutrophils % 72.3 Lymphocytes % 17.0 Monocytes % 9.6 Eosinophils % 0.1 Basophils % 0.5 Nucleated Red Blood Cells % 0.0 Neutrophils # (Manual) 6.4 Lymphocytes # 1.5 Monocytes # 0.9 Eosinophils # 0.0 Basophils # 0.0 Nucleated Red Blood Cells # 0.0 Prothrombin Time 14.2 Prothrombin Time Ratio 1.1 INR International Normalized Ratio 1.10 Activated Partial Thromboplast Time 30.5 Sodium Level 139 Potassium Level 3.8 Chloride Level 107 Carbon Dioxide Level 27 Anion Gap 9 Blood Urea Nitrogen 6 L Creatinine 0.54 Glucose Level 119 Calcium Level 9.2 Phosphorus Level 3.3 Magnesium Level 2.3 Total Bilirubin 0.1 L Direct Bilirubin 0.00 Indirect Bilirubin 0.1 Aspartate Amino Transf (AST/SGOT) 79 H Alanine Aminotransferase (ALT/SGPT) 130 H Alkaline Phosphatase 267 H Total Protein 6.0 L Albumin 3.2 L Globulin 2.80 Albumin/Globulin Ratio 1.14 Immunoglobulin A 195 Immunoglobulin G 888 Immunoglobulin M 62 Medications Medications Current Medications Ondansetron HCl (Zofran Inj) 4 mg Q6H PRN IV NAUSEA AND/OR VOMITING Last administered on 07/26/17 16:25; Admin Dose 4 MG; Start 07/25/17 at 19:30 Acetaminophen/ Hydrocodone Bitart ([place] (5/325)) 1 tab Q4H PRN PO PAIN LEVEL 4 -7 Last administered on 9/8/17at 21:47; Admin Dose 1 TAB; Start 07/26/17 at 17:00 Acetaminophen/ Hydrocodone Bitart ([place] (5/325)) 2 tab Q4H PRN PO PAIN LEVEL 7 -10; Start 07/26/17 at 17:00 Hydromorphone HCl (Dilaudid) 0.5 mg Q2 PRN IV PAIN; Start 07/26/17 at 17:00 Hydromorphone HCl (Dilaudid) 1 mg Q2 PRN IV PAIN; Start 07/26/17 at 17:00 Docusate Sodium (Colace) 100 mg BID PRN PO CONSTIPATION; Start 07/26/17 at 17:00 Bisacodyl (Dulcolax Supp) 10 mg BID PRN SC CONSTIPATION; Start 07/26/17 at 17:00 Sodium Biphosphate/ Sodium Phosphate (Fleet Enema) 133 ml BID PRN SC CONSTIPATION; Start 07/26/17 at 17:00 Famotidine (Pepcid Iv) 20 mg DAILY IV Last administered on 07/27/17 08:25; Admin Dose 20 MG; Start 07/27/17 at 09:00 Enoxaparin Sodium (Lovenox) 40 mg DAILY SC Last administered on 07/27/17 08:35 ; Admin Dose 40 MG; Start 07/27/17 at 09:00 CARLEE RILEY MD Jul 27, 2017 16:15
--- NOTE | 2017-07-27 16:30 | PN ---
Date/Time of Note Date/Time of Note DATE: 07/27/17 TIME: 16:21 Assessment/Plan Lines/Catheters IV Catheter Type (from Nrsg): Peripheral IV Assessment/Plan Assessment/Plan [facility] Progress Note Date of Service: 07/27/17 Today's Impression & Plan: Overall doing well post op without major issues. No major wound problems. With above assessment, I've recommended the following for today: 1. Ok to d/c from my standpoint 2. D/c instructions: Please call [phone] if any of fever, nausea, vomiting, discharge from wound , wound redness, increase or sudden pain, blood in stool or vomit, or any other unusual signs or symptoms. Also, please call the same number in a few days to schedule an appointment for your follow up visit. Patient may remove dressings tomorrow. Showers OK starting tomorrow. No swimming , hot tub or bath for 2 weeks. No lifting more than 25 lbs for 8 weeks. Updated clinical summary: A very-pleasant 52-year-old lady with comorbidity of class I obesity as well as migraine headaches, presenting to [facility] through the emergency department on 07/25/2017 with abdominal pain of unclear etiology. Comorbidities: 1. Acute cholecystitis with symptomatic cholelithiasis. S/p an otherwise uncomplicated laparoscopic cholecystectomy at [facility] on 07/26/17 along with core needle liver biopsy with findings of acute cholecystitis and likely hepatic steatosis. 2. Migraine headaches 3. Known cholelithiasis 4. Likely hepatic steatosis with possible steatohepatitis versus possible choledocholithiasis 5. Hysterectomy for fibroids 6. Class I obesity Subjective: No major events or complaints; no major abd pain and under control with medications; no n/v/d; no sob or cp; + flatus; - BM; + activity Objective: Vitals: See below Exam: GENERAL: On exam, the patient was laying in bed and appeared to be comfortable and in no acute distress. ABDOMEN: Soft, nontender and nondistended. Incision dressings are clean, dry and intact without any evidence of obvious underlying erythema, edema, discharge , or hernia. There are no peritoneal signs or guarding. SKIN: Skin appears to be pink and feels warm to touch. NEUROLOGIC: Patient is awake, alert, and follows commands appropriately. Exam/Review of Systems Vital Signs Vitals Vital Signs Date Time Temp Pulse Resp B/P Pulse Ox O2 Delivery O2 Flow Rate FiO2 07/27/17 14:35 98.6 71 18 101/58 97 07/26/17 16:59 Room Air 07/26/17 16:19 10.0 Intake and Output 07/26/17 07/26/17 07/27/17 15:00 23:00 07:00 Intake Total 500 ml 1785 ml 1000 ml Output Total 1010 ml 1100 ml Balance 500 ml 775 ml -100 ml Results Result Diagram: 07/27/17 0516 07/27/17 0516 MARY KAY ACOSTA M.D. Jul 27, 2017 16:30
[2017-07-27 19:29] VITALS: BP 130/61; RESP 18
[2017-07-28 01:13] VITALS: BP 116/73; RESP 18
[2017-07-28 05:54] LABS: BASOPHIL # 0.1 10^3/ul (0.0-0.1); BASOPHILS % 0.8 % (0.0-2.0); EOSINOPHILS # 0.2 10^3/ul (0.0-0.5); EOSINOPHILS % 1.8 % (0.0-7.0); HEMATOCRIT 35.2 % (37.0-47.0); HEMOGLOBIN 11.7 g/dl (12.0-16.0); LYMPHOCYTES # 2.4 10^3/ul (0.8-2.9); MEAN CORPUSCULAR HEMOGLOBIN 29.1 pg (29.0-33.0); MEAN CORPUSCULAR HGB CONC 33.2 g/dl (32.0-37.0); MEAN CORPUSCULAR VOLUME 87.6 fl (82.0-101.0); MEAN PLATELET VOLUME 9.3 fl (7.4-10.4); MONOCYTE # 0.8 10^3/ul (0.3-0.9); MONOCYTES % 9.6 % (0.0-11.0); NEUTROPHILS % 58.4 % (39.0-77.0); PLATELET COUNT 346 10^3/UL (140-415); RED BLOOD COUNT 4.02 10^6/ul (4.20-5.40); RED CELL DISTRIBUTION WIDTH 13.9 % (11.5-14.5); WHITE BLOOD COUNT 8.2 10^3/ul (4.8-10.8)
[2017-07-28 06:27] LABS: ALBUMIN 3.6 g/dl (3.3-4.9); ALBUMIN/GLOBULIN RATIO 1.2; BILIRUBIN,INDIRECT 0.2 mg/dl (0-1.1); BILIRUBIN,TOTAL 0.2 mg/dl (0.2-1.3); CALCIUM 9.5 mg/dl (8.4-10.2); CREATININE 0.57 mg/dl (0.44-1.00); POTASSIUM 3.8 mmol/L (3.5-5.1); TOTAL PROTEIN 6.6 g/dl (6.1-8.1)
[2017-07-28 07:39] VITALS: BP 112/59; RESP 18
[2017-07-28] MEDS: FAMOTIDINE 20 MG INJ IV SCH (08:56)
[2017-07-28] MEDS: ENOXAPARIN 40 MG/0.4 ML SYG SC SCH (08:57)
--- NOTE | 2017-07-28 11:05 | PN ---
Date/Time of Note Date/Time of Note DATE: 07/28/17 TIME: 11:04 Assessment/Plan Lines/Catheters IV Catheter Type (from Nrsg): [place] Assessment/Plan Assessment/Plan [facility] Progress Note Date of Service: 07/28/17 Today's Impression & Plan: Overall doing well post op without major issues. No major wound problems. Slight rise in LFT's note. Will need outpatient LFT check through PCP and my office. With above assessment, I've recommended the following for today: 1. Ok to d/c from my standpoint 2. Please set up for outpatient lab check to include CBC, Chem 8, LFT's and fax results to me and patient's PCP 3. D/c instructions: Please call [phone] if any of fever, nausea, vomiting, discharge from wound , wound redness, increase or sudden pain, blood in stool or vomit, or any other unusual signs or symptoms. Also, please call the same number in a few days to schedule an appointment for your follow up visit. Patient may remove dressings tomorrow. Showers OK starting tomorrow. No swimming , hot tub or bath for 2 weeks. No lifting more than 25 lbs for 8 weeks. Updated clinical summary: A very-pleasant 52-year-old lady with comorbidity of class I obesity as well as migraine headaches, presenting to [facility] through the emergency department on 07/25/2017 with abdominal pain of unclear etiology. Comorbidities: 1. Acute cholecystitis with symptomatic cholelithiasis. S/p an otherwise uncomplicated laparoscopic cholecystectomy at [facility] on 07/26/17 along with core needle liver biopsy with findings of acute cholecystitis and likely hepatic steatosis. 2. Migraine headaches 3. Known cholelithiasis 4. Likely hepatic steatosis with possible steatohepatitis versus possible choledocholithiasis 5. Hysterectomy for fibroids 6. Class I obesity Subjective: No major events or complaints; no major abd pain and under control with medications; no n/v/d; no sob or cp; + flatus; - BM; + activity Objective: Vitals: See below Exam: GENERAL: On exam, the patient was laying in bed and appeared to be comfortable and in no acute distress. ABDOMEN: Soft, nontender and nondistended. Incision dressings d/c'd and incisions are clean, dry and intact without any evidence of obvious erythema, edema, discharge, or hernia. There are no peritoneal signs or guarding. SKIN: Skin appears to be pink and feels warm to touch. NEUROLOGIC: Patient is awake, alert, and follows commands appropriately. Exam/Review of Systems Vital Signs Vitals Vital Signs Date Time Temp Pulse Resp B/P Pulse Ox O2 Delivery O2 Flow Rate FiO2 07/28/17 07:39 98.7 75 18 112/59 96 07/26/17 16:59 Room Air 07/26/17 16:19 10.0 Intake and Output 07/27/17 07/27/17 07/28/17 15:00 23:00 07:00 Intake Total 700 ml 2440 ml 480 ml Balance 700 ml 2440 ml 480 ml Results Result Diagram: 07/28/17 0500 07/28/17 0500 MARY KAY ACOSTA M.D. Jul 28, 2017 11:05
--- NOTE | 2017-07-28 12:17 | PDOCDIS ---
Discharge Instructions DIAGNOSIS Discharge Diagnosis Cholelithiasis CONDITION Patient Condition: Good HOME CARE INSTRUCTIONS: Special Diet: clear diet FOLLOW UP/APPOINTMENTS Follow-up Plan Follow up with Dr Brown (surgeon) in clinic. Please call [phone] if any of fever, nausea, vomiting, discharge from wound, wound redness, increase or sudden pain, blood in stool or vomit, or any other unusual signs or symptoms. Also, please call the same number in a few days to schedule an appointment for your follow up visit with Dr Brown. You may remove dressings tomorrow. Showers OK starting tomorrow. No swimming, hot tub or bath for 2 weeks. No lifting more than 25 lbs for 8 weeks. It is also very important for you to follow up with Dr Cabral in clinic for the results of your liver biopsy CARLEE RILEY MD Jul 28, 2017 12:17
[2017-07-28 14:10] VITALS: BP 114/52; RESP 18
--- NOTE | 2017-07-28 16:21 | DS ---
Date/Time of Note Date/Time of Note DATE: 07/28/17 TIME: 16:18 Discharge Summary Admission/Discharge Info Admit Date/Time Jul 25, 2017 at 12:09 Discharge Date/Time Jul 28, 2017 at 14:55 Discharge Diagnosis Cholelithiasis Patient Condition: Good Hx of Present Illness 52 yo female with h/o cholelithiasis, migraines presenting with abdominal pain over past couple days Patient with known gall stones previously. Here in 2016 with US showing nonobstructing stones. Intermittent colicy abd pain over past years. Over past couple days much more severe. Denies any fevers, though does report "chills". Tolerating normal PO. Pain is intermittent, does not seem worse w eating. Normal bowel habits. Pain to my exam and history is more diffuse and lower quadrants but not localized to RUQ. In ED found to have elevated transaminases and gall stones on US without pericholecystic fluid or wall thickening, normal ducts. Comfortable when seen by me on the floor Hospital Course 52 yo female with h/o cholelithiasis and migraines who presents with abdominal pain over the past few days. She has been found to have elevated transaminases and large gall stone on RUQ US, without wall thickening, ductal dilation, or pericholecystic fluid. She was also found to have UTI which was treated with ceftriaxone. She underwent laparasopci cholecystectomy which was uncomplciated. Her transaminases were in the 200s. MRCP and CT showed unremarkable liver and ducts. Viral serologies and iron studies were normal. A liver biopsy was performed in the OR and will be followed up as an outpatient. Ceruloplasmin, AMY, and anti-ALK, anti-sma antibiodies, SPEP are pending at time of discharge. Patient will follow up in clinic with Dr Brwon and Dr Cabral Home Meds Discontinued Scripts Ondansetron (Ondansetron Odt) 4 Mg Tab.rapdis, 4 MG PO Q6H Y for NAUSEA AND/OR VOMITING, #10 TAB Prov:STACI PENA MD 07/12/17 Ibuprofen* (Motrin*) 600 Mg Tab, 600 MG PO Q8, #30 TAB Prov:STACI PENA MD 07/12/17 Primary Care Provider Care Physician No Primary Pending Labs Laboratory Tests Test 07/28/17 05:00 White Blood Count 8.210^3/ul (4.8-10.8) Red Blood Count 4.0210^6/ul (4.20-5.40) Hemoglobin 11.7g/dl (12.0-16.0) Hematocrit 35.2% (37.0-47.0) Mean Corpuscular Volume 87.6fl (82.0-101.0) Mean Corpuscular Hemoglobin 29.1pg (29.0-33.0) Mean Corpuscular Hemoglobin Concent 33.2g/dl (32.0-37.0) Red Cell Distribution Width 13.9% (11.5-14.5) Platelet Count 18519^3/UL (140-415) Mean Platelet Volume 9.3fl (7.4-10.4) Neutrophils % 58.4% (39.0-77.0) Lymphocytes % 29.0% (15.0-51.0) Monocytes % 9.6% (0.0-11.0) Eosinophils % 1.8% (0.0-7.0) Basophils % 0.8% (0.0-2.0) Nucleated Red Blood Cells % 0.0/100WBC (0.0-0.0) Neutrophils # (Manual) 4.810^3/ul (1.7-7.5) Lymphocytes # 2.410^3/ul (0.8-2.9) Monocytes # 0.810^3/ul (0.3-0.9) Eosinophils # 0.210^3/ul (0.0-0.5) Basophils # 0.110^3/ul (0.0-0.1) Nucleated Red Blood Cells # 0.010^3/ul (0.0-0.0) Sodium Level 141mmol/L (135-144) Potassium Level 3.8mmol/L (3.5-5.1) Chloride Level 107mmol/L (97-110) Carbon Dioxide Level 30mmol/L (21-31) Anion Gap 8 (8-16) Blood Urea Nitrogen 9mg/dl (7-20) Creatinine 0.57mg/dl (0.44-1.00) Glucose Level 81mg/dl (70-220) Calcium Level 9.5mg/dl (8.4-10.2) Total Bilirubin 0.2mg/dl (0.2-1.3) Direct Bilirubin 0.00mg/dl (0.00-0.20) Indirect Bilirubin 0.2mg/dl (0-1.1) Aspartate Amino Transf (AST/SGOT) 63IU/L (15-46) Alanine Aminotransferase (ALT/SGPT) 120IU/L (13-69) Alkaline Phosphatase 275IU/L (42-121) Total Protein 6.6g/dl (6.1-8.1) Albumin 3.6g/dl (3.3-4.9) Globulin 3.00g/dl (1.3-3.2) Albumin/Globulin Ratio 1.20 CARLEE RILEY MD Jul 28, 2017 16:21
[2017-07-29 14:37] LABS: ANA SCREEN NEGATIVE (NEGATIVE)
[2017-07-30 01:26] LABS: PROTEIN, TOTAL 6.5 g/dL (6.1-8.1)
[2017-07-30 13:52] LABS: ALBUMIN 3.8 g/dL (3.8-4.8)
== END 2017-07-28 14:55 | disposition home or self-care (01) | DRG 418 ==
LOC: E/R 08:15 → MS2 12:09
PROVIDERS: ADMIT Internal Medicine; ATTEND Internal Medicine
PROC: 0FB04ZX Excision of Liver, Percutaneous Endoscopic Approach, Diagnostic (ICD-10-PCS; 2017-07-26)
PROC: 0FT44ZZ Resection of Gallbladder, Percutaneous Endoscopic Approach (ICD-10-PCS; principal; 2017-07-26 16:00)
DX: K80.12 Calculus of gallbladder with acute and chronic cholecystitis without obstruction (principal); N39.0 Urinary tract infection, site not specified; K76.0 Fatty (change of) liver, not elsewhere classified; G43.909 Migraine, unspecified, not intractable, without status migrainosus
CPT/HCPCS: 36415; 74178; 74181; 76705; 80053; 81001; 82310; 82390; 82728; 82784; 82977; 83036; 83540; 83690; 83735; 84100; 84155; 84165; 84439; 84443; 84703; 85025; 85610; 85730; 86038; 86255; 86376; 86704; 86709; 86803; 87340; 88304; 88307; 88313; 96374; 96375; J0690; J1100; J1170; J1650; J1885; J2175; J2250; J2405; J2765; J2795; J3010; J3480; J7030; J7042; J7070; Q9967

== ENCOUNTER 2017-08-04 01:18 | Emergency (ER) | payer MEDICAID ==
[~2017-08-04] VITALS: Ht 160 cm; Wt 70.0 kg
[2017-08-04 01:22] VITALS: Ht 160 cm; Wt 70.0 kg
[2017-08-04] MEDS ORDERED: morphine 4 MG/ML VIAL IV STA (02:49)
[2017-08-04] MEDS ORDERED: ONDANSETRON 4 MG INJ IV STA (02:49)
[2017-08-04] MEDS ORDERED: SOD CHLORIDE 0.9% 1,000 ML IV STA (02:49)
[2017-08-04 02:51] LABS: URINE BLOOD (Dip) POC 1+ (NEGATIVE)
[2017-08-04 03:51] LABS: ADD UMIC YES; UR ASCORBIC ACID NEGATIVE (NEGATIVE); UR BACTERIA MANY /HPF (NONE SEEN); UR BILIRUBIN (Dip) NEGATIVE (NEGATIVE); UR BLOOD (Dip) 2+ mg/dL (NEGATIVE); UR CLARITY CLEAR (CLEAR); UR COLOR STRAW (YELLOW); UR GLUCOSE (Dip) NEGATIVE (NEGATIVE); UR KETONES (Dip) NEGATIVE (NEGATIVE); UR LEUKOCYTE ESTERASE (Dip) NEGATIVE Leu/ul (NEGATIVE); UR NITRITE (Dip) NEGATIVE (NEGATIVE); UR RBC 1 /HPF (0-5); UR SPECIFIC GRAVITY (Dip) 1.005 (1.003-1.030); UR TOTAL PROTEIN (Dip) NEGATIVE (NEGATIVE); UR UROBILINOGEN (Dip) NEGATIVE (NEGATIVE)
[2017-08-04 04:01] LABS: BASOPHIL # 0.1 10^3/ul (0.0-0.1); BASOPHILS % 1.1 % (0.0-2.0); EOSINOPHILS # 0.3 10^3/ul (0.0-0.5); EOSINOPHILS % 3.3 % (0.0-7.0); HEMATOCRIT 38.2 % (37.0-47.0); HEMOGLOBIN 12.7 g/dl (12.0-16.0); LYMPHOCYTES # 2.5 10^3/ul (0.8-2.9); LYMPHOCYTES % 28.8 % (15.0-51.0); MEAN CORPUSCULAR HEMOGLOBIN 29.2 pg (29.0-33.0); MEAN CORPUSCULAR HGB CONC 33.2 g/dl (32.0-37.0); MEAN CORPUSCULAR VOLUME 87.8 fl (82.0-101.0); MEAN PLATELET VOLUME 9.3 fl (7.4-10.4); MONOCYTE # 0.8 10^3/ul (0.3-0.9); MONOCYTES % 8.8 % (0.0-11.0); NEUTROPHILS % 57.1 % (39.0-77.0); PLATELET COUNT 367 10^3/UL (140-415); RED BLOOD COUNT 4.35 10^6/ul (4.20-5.40); RED CELL DISTRIBUTION WIDTH 13.3 % (11.5-14.5); WHITE BLOOD COUNT 8.8 10^3/ul (4.8-10.8)
[2017-08-04 04:09] LABS: ALBUMIN 4.5 g/dl (3.3-4.9); ALBUMIN/GLOBULIN RATIO 1.28; BILIRUBIN,INDIRECT 0.2 mg/dl (0-1.1); BILIRUBIN,TOTAL 0.2 mg/dl (0.2-1.3); CREATININE 0.7 mg/dl (0.44-1.00); POTASSIUM 3.7 mmol/L (3.5-5.1)
[2017-08-04 04:14] LABS: CALCIUM 10.1 mg/dl (8.4-10.2)
--- NOTE | 2017-08-04 04:33 | RADRPT ---
PROCEDURE: ULTRASOUND LIMITED ABDOMEN CLINICAL INDICATION: 52-year-old female with abdominal pain and history of recent cholecystectomy. TECHNIQUE: Multiple sonographic of the right upper quadrant of the abdomen were obtained. The imag es were reviewed on a PACS workstation. COMPARISON: CT abdomen/pelvis July 25, 2017. FINDINGS: The pancreas is partially visualized and is otherwise without abnormal echogenicity. The liver displays normal echogenicity. The liver measures 15 point a cm in length. No evidence of intrahepatic biliary ductal dilatation is seen. The portal and hepatic veins are unremarkable. The gallbladder is not visualized consistent with cholecystectomy. The common bile duct measures 4.4 mm and is not dilated. The right kidney displays normal echogenicity. The right kidney measures 9.6 cm in maximal length. T here is mild prominence of the right renal collecting system without estefania hydronephrosis. No free fluid is seen. IMPRESSION: 1. Status post cholecystectomy. 2. Mild prominence of the right renal collecting system. .Pravin Messina MD, MD Date Time Electronically viewed and signed by .Pravin Messina MD, on 08/04/2017 04:33 .Shon/
--- NOTE | 2017-08-04 04:51 | RADRPT ---
PROCEDURE: CT ABDOMEN/PELVIS WITHOUT CONTRAST CLINICAL INDICATION: 52-year-old female with right lower quadrant pain. The patient has a history of recent cholecystectomy. TECHNIQUE: The study was performed utilizing a [employer] VCT 64-slice CT scanner. Direct axia l sections were obtained through the abdomen and pelvis without the use of intravenous contrast mate rial. Sagittal and coronal reformations were obtained. One or more of the following dose reduction t echniques were utilized: automated exposure control, adjustment of the mA and/or kV according to pat ient's size or use of iterative reconstruction technique. The images [facility] CTD/vol = 10.9 mGy; Total Exam DLP = 595.9 mGy-cm. COMPARISON: Right upper quadrant ultrasound August 04, 2017; CT abdomen/pelvis July 25. FINDINGS: The lung bases are unremarkable. There is no evidence for significant pleural effusion. The liver has a normal size and contour without focal areas of abnormal density. No intrahepatic nor extrahepa tic biliary ductal dilatation is seen. Surgical clips are seen within the gallbladder fossa with min imal surrounding infiltration consistent with recent cholecystectomy. There is no significant fluid collection. The pancreas is without areas of abnormal attenuation. The spleen is identified and has a normal size without abnormal density. The adrenal glands are unremarkable. The kidneys are withou t abnormal density. There is mild prominence of the right renal collecting system without evidence f or estefania hydroureteronephrosis. There is no evidence for nephroureterolithiasis. The urinary bladder contains urine. There is mild retained stool within the ascending and transverse colon without obst ruction. The appendix is visualized and is without abnormal thickening or surrounding inflammatory reaction. The uterus is not visualized consistent with prior hysterectomy. There is a left ovarian c yst measuring approximately 2.0 x 2.0 x 1.9 cm. There is minimal pelvic free fluid. The aortoiliac v essels are without aneurysmal dilatation. The osseous structures are intact. IMPRESSION: 1. Status post cholecystectomy with minimal infiltration within the gallbladder fossa consistent wi th recent surgery. 2. Mild nonspecific prominence of the right renal collecting system without estefania hydronephrosis. 3. Mild retained stool within the proximal colon without obstruction. 4. No CT evidence for appendicitis. 5. Status post hysterectomy. 6. Left ovarian cyst. 7. Minimal pelvic free fluid. .Pravin Messina MD, MD Date Time Electronically viewed and signed by .Pravin Messina MD, MD on 08/04/2017 04:50 ./
[2017-08-04] MEDS ORDERED: CEFTRIAXONE 1 GM/50 ML (PMX) 50 ML IVPB ONE (05:00)
[2017-08-04 05:05] VITALS: BP 109/66; PULSE 70; RESP 16; TEMP 98.3
[2017-08-04] MEDS ORDERED: KETOROLAC 30 MG INJ IV STA (05:20)
[2017-08-04] MEDS ORDERED: ONDA4TAB11 PO (05:48)
[2017-08-04] MEDS ORDERED: MAGN296S40 PO (05:48)
[2017-08-04] MEDS ORDERED: NAPR-688 PO (05:48)
[2017-08-04] MEDS ORDERED: HYDR-906 PO (05:48)
[2017-08-04] MEDS ORDERED: CIPR500T4 PO (05:48)
--- NOTE | 2017-08-04 06:02 | ERD ---
ER Documentation Chief Complaint Date/Time DATE: 08/04/17 TIME: 05:53 Chief Complaint upper abd pain x 3 days HPI -This 52-year-old female comes complaining of right lower quadrant pain for 3 days. She did have a recent gallbladder surgery. Says this pain is not similar to that. She has mild nausea as well. Otherwise she has had no fevers and chills denies any chest pain. She states that she may be constipated and is not having bowel movements very frequently. ROS All systems reviewed and are negative except as per history of present illness. Medications Home Meds Active Scripts Ciprofloxacin Hcl* (Ciprofloxacin Hcl*) 500 Mg Tablet, 500 MG PO BID for 3 Days , TAB Prov:KRISTYN RODRÍGUEZ DO 08/04/17 Ondansetron (Zofran Odt) 4 Mg Tab.rapdis, 4 MG PO Q6, #10 Prov:KRISTYN RODRÍGUEZ DO 08/04/17 Hydrocodone/Acetaminophen ([place] 5-325 Tablet) 1 Each Tablet, 1 EACH PO Q6, #12 TAB Prov:KRISTYN RODRÍGUEZ DO 08/04/17 Naproxen* (Naproxen*) 500 Mg Tablet, 500 MG PO BID Y for PAIN, #20 TAB Prov:KRISTYN RODRÍGUEZ DO 08/04/17 Magnesium Citrate* (Magnesium Citrate*) 296 Ml Solution, 296 ML PO ONCE, #1 BOTTLE Prov:KRISTYN RODRÍGUEZ DO 08/04/17 Allergies Allergies: Coded Allergies: No Known Allergy (Unverified , 07/12/17) PMhx/Soc History of Surgery: No Anesthesia Reaction: No Hx Neurological Disorder: No Hx Respiratory Disorders: No Hx Cardiac Disorders: No Hx Psychiatric Problems: No Hx Miscellaneous Medical Probl: No Hx Alcohol Use: Yes Hx Substance Use: No Hx Tobacco Use: No Smoking Status: Smoker,current status unk Physical Exam Vitals Vital Signs Date Time Temp Pulse Resp B/P Pulse Ox O2 Delivery O2 Flow Rate FiO2 08/04/17 01:22 98.2 77 20 118/56 99 Physical Exam Const: [] Mild distress Head: Atraumatic Eyes: Normal Conjunctiva ENT: Normal External Ears, Nose and Mouth. Neck: Full range of motion..~ No meningismus. Resp: Clear to auscultation bilaterally Cardio: Regular rate and rhythm, no murmurs Abd: Soft, Mild right lower quadrant abdominal tenderness without guarding or rebound, no tenderness in any other quadrant, non distended. Normal bowel sounds Skin: No petechiae or rashes Back: No midline or flank tenderness Ext: No cyanosis, or edema Neur: Awake and alert and oriented 3, no focal deficits Psych: Normal Mood and Affect Result Diagram: 08/04/17 0304 08/04/17 0304 Results 24 hrs Laboratory Tests Test 08/04/17 02:58 08/04/17 03:04 Bedside Urine pH (LAB) 6.0 Bedside Urine Protein (LAB) Negative Bedside Urine Glucose (UA) Negative Bedside Urine Ketones (LAB) Negative Bedside Urine Blood 1+ Bedside Urine Nitrite (LAB) Negative Bedside Urine Leukocyte Esterase (L Trace White Blood Count 8.810^3/ul Red Blood Count 4.3510^6/ul Hemoglobin 12.7g/dl Hematocrit 38.2% Mean Corpuscular Volume 87.8fl Mean Corpuscular Hemoglobin 29.2pg Mean Corpuscular Hemoglobin Concent 33.2g/dl Red Cell Distribution Width 13.3% Platelet Count 37576^3/UL Mean Platelet Volume 9.3fl Neutrophils % 57.1% Lymphocytes % 28.8% Monocytes % 8.8% Eosinophils % 3.3% Basophils % 1.1% Nucleated Red Blood Cells % 0.0/100WBC Neutrophils # 5.010^3/ul Lymphocytes # 2.510^3/ul Monocytes # 0.810^3/ul Eosinophils # 0.310^3/ul Basophils # 0.110^3/ul Nucleated Red Blood Cells # 0.010^3/ul Urine Color STRAW Urine Clarity CLEAR Urine pH 6.0 Urine Specific [place] 1.005 Urine Ketones NEGATIVEmg/dL Urine Nitrite NEGATIVEmg/dL Urine Bilirubin NEGATIVEmg/dL Urine Urobilinogen NEGATIVEmg/dL Urine Leukocyte Esterase NEGATIVELeu/ul Urine Microscopic RBC 1/HPF Urine Microscopic WBC 4/HPF Urine Bacteria MANY/HPF Urine Hemoglobin 2+mg/dL Urine Glucose NEGATIVEmg/dL Urine Total Protein NEGATIVEmg/dl Sodium Level 143mmol/L Potassium Level 3.7mmol/L Chloride Level 105mmol/L Carbon Dioxide Level 28mmol/L Anion Gap 14 Blood Urea Nitrogen 12mg/dl Creatinine 0.70mg/dl Glucose Level 97mg/dl Calcium Level 10.1mg/dl Total Bilirubin 0.2mg/dl Direct Bilirubin 0.00mg/dl Indirect Bilirubin 0.2mg/dl Aspartate Amino Transf (AST/SGOT) 38IU/L Alanine Aminotransferase (ALT/SGPT) 79IU/L Alkaline Phosphatase 201IU/L Total Protein 8.0g/dl Albumin 4.5g/dl Globulin 3.50g/dl Albumin/Globulin Ratio 1.28 Lipase 89U/L Current Medications Medications (Trade) Dose Ordered Sig/Kaur Route PRN Reason Start Time Stop Time Status Last Admin Dose Admin Sodium Chloride (NS) 1,000 ml @ 1,000 mls/hr Q1H STAT IV 08/04/17 02:49 08/04/17 03:48 DC 08/04/17 03:48 Morphine Sulfate (morphine) 4 mg ONCE STAT IV 08/04/17 02:49 08/04/17 02:51 DC 08/04/17 03:48 Ondansetron HCl 4 mg 4 mg ONCE STAT IV 08/04/17 02:49 08/04/17 02:51 DC 08/04/17 03:48 Ceftriaxone Sodium (Rocephin) 50 ml @ 100 mls/hr ONCE ONCE IVPB 08/04/17 05:00 08/04/17 05:29 DC 08/04/17 05:00 Ketorolac Tromethamine (Toradol) 30 mg ONCE STAT IV 08/04/17 05:20 08/04/17 05:32 DC 08/04/17 05:47 Procedures/MDM Right lower quadrant abdominal pain with urinary tract infection and mild constipation. She is given normal saline and Rocephin in the emergency room. No signs of renal dysfunction. Is feeling much better after 4 mg of morphine and Zofran. Also gave her Toradol and her renal function returned normally. She is feeling much better in the emergency room. Going to discharge with primary care follow-up as well as return precautions. CT abdomen pelvis interpretation: Mild to retention throughout colon, I see no appendicitis, no abnormal fat stranding, right upper quadrant changes consistent with dates from postop, no free air, no bowel obstruction, no fractures. Upper quadrant ultrasound interpretation: Normal postoperative changes with mild prominence of the ductal system. No calculi. Departure Diagnosis: Primary Impression: Acute abdominal pain Additional Impression: Cystitis Condition: Stable Patient Instructions: Understanding Urinary Tract Infections (UTIs), Abdominal Pain, Unknown Cause, (Female) Referrals: [facility] YOU HAVE RECEIVED A MEDICAL SCREENING EXAM AND THE RESULTS INDICATE THAT YOU DO NOT HAVE A CONDITION THAT REQUIRES URGENT TREATMENT IN THE EMERGENCY DEPARTMENT. FURTHER EVALUATION AND TREATMENT OF YOUR CONDITION CAN WAIT UNTIL YOU ARE SEEN IN YOUR DOCTORS OFFICE WITHIN THE NEXT 1-2 DAYS. IT IS YOUR RESPONSIBILITY TO MAKE AN APPOINTMENT FOR FOLOW-UP CARE. IF YOU HAVE A PRIMARY DOCTOR --you should call your primary doctor and schedule an appointment IF YOU DO NOT HAVE A PRIMARY DOCTOR YOU CAN CALL OUR PHYSICIAN REFERRAL HOTLINE AT IF YOU CAN NOT AFFORD TO SEE A PHYSICIAN YOU CAN CHOSE FROM THE FOLLOWING [facility] [address] [place] [address] [facility] [facility] [address] [facility] [address] [facility] [address] [facility]. [facility]. [address] Additional Instructions: Llame al doctor MAANA y titi matthew AMANDA PARA DENTRO DE 1-2 SOSA.Dgale a la secretaria que nosotros le instruimos hacer esta amanda.Avise o llame si luu condicin se empeora antes de la amanda. Regresa aqui si peor o no mejor. KRISTYN RODRÍGUEZ DO Aug 04, 2017 06:02
== END 2017-08-04 06:08 | disposition home or self-care (01) ==
LOC: E/R 01:18
DX: N30.90 Cystitis, unspecified without hematuria (principal); F17.210 Nicotine dependence, cigarettes, uncomplicated
CPT/HCPCS: 36415; 74176; 76705; 80053; 81001; 83690; 85025; 96374; 96375; J0696; J1885; J2270; J2405; J7030; Z7502; 81003

== ENCOUNTER 2017-08-14 15:37 | Outpatient (CLI) | payer SELFPAY ==
[~2017-08-14] VITALS: Ht 162.6 cm; Wt 70.5 kg
[~2017-08-14 15:37] MED LIST changes: +CIPR500T4 PO; +HYDR-906 PO; -IBUP-1542 PO; +MAGN296S40 PO; +NAPR-688 PO; +ONDA4TAB11 PO; -ONDA4TAB14 PO
[2017-08-14 15:44] VITALS: Ht 162.6 cm; Wt 70.5 kg
[2017-08-14 15:45] VITALS: BP 125/60; PULSE 81; RESP 16
--- NOTE | 2017-08-14 15:49 | PN ---
Date/Time of Note Date/Time of Note DATE: 08/14/17 TIME: 15:43 Assessment/Plan Assessment/Plan Assessment/Plan [facility] Progress Note Date of Service: 08/14/17 Today's Impression & Plan: Overall doing well post op without major issues. No major wound problems. Abdomen remains benign and there are no indications of major postoperative complications or wound problems. With above assessment, I've recommended the following for today: 1. F/u with PCP 2. F/u with us prn 3. Make appropriate permanent changes to her lifestyle to change approach to food, caloric intake, and to increase and maintain consistent exercise on a daily basis with the goal of bringing her BMI down to between 18-24 (15 minutes of counseling time utilized) Updated clinical summary: A very-pleasant 52-year-old lady with comorbidity of class I obesity as well as migraine headaches, presenting to [facility] through the emergency department on 07/25/2017 with abdominal pain of unclear etiology. Comorbidities: 1. Acute cholecystitis with symptomatic cholelithiasis. S/p an otherwise uncomplicated laparoscopic cholecystectomy at [facility] on 07/26/17 along with core needle liver biopsy with findings of acute cholecystitis and likely hepatic steatosis. Final pathology demonstrated chronic cholecystitis as well as moderate microvesicular steatosis. One visit postoperatively to the emergency department for diagnosis of urinary tract infection. 2. Migraine headaches 3. Known cholelithiasis 4. Likely hepatic steatosis with possible steatohepatitis versus possible choledocholithiasis 5. Hysterectomy for fibroids 6. Class I obesity Subjective: No major events or complaints; no major abd pain and under control with medications; no n/v/d; no sob or cp; + flatus; + BM; + activity Objective: Vitals: See below Exam: GENERAL: On exam, the patient was laying in bed and appeared to be comfortable and in no acute distress. ABDOMEN: Soft, nontender and nondistended. Incisions are clean, dry and intact without any evidence of obvious erythema, edema, discharge, or hernia. There are no peritoneal signs or guarding. SKIN: Skin appears to be pink and feels warm to touch. NEUROLOGIC: Patient is awake, alert, and follows commands appropriately. MARY KAY ACOSTA M.D. Aug 14, 2017 15:49
== END 2017-08-14 17:00 | disposition home or self-care (01) ==
LOC: HPC 15:37
PROVIDERS: ATTEND Transplant Surgery
DX: G43.909 Migraine, unspecified, not intractable, without status migrainosus (principal); K80.20 Calculus of gallbladder without cholecystitis without obstruction; K76.0 Fatty (change of) liver, not elsewhere classified; Z90.710 Acquired absence of both cervix and uterus; E66.9 Obesity, unspecified
CPT/HCPCS: G0463

== ENCOUNTER 2018-01-27 00:50 | Emergency (ER) | END 2018-01-27 10:46 | disposition home or self-care (01) ==

== ENCOUNTER 2018-05-21 19:15 | Emergency (ER) | END 2018-05-21 22:16 | disposition home or self-care (01) ==

== ENCOUNTER 2019-02-18 12:32 | Emergency (ER) | payer MEDICAID ==
[~2019-02-18] VITALS: Ht 157.5 cm; Wt 75.0 kg
[~2019-02-18 12:32] MED LIST changes: -CIPR500T4 PO; -HYDR-906 PO; +IBUP-1542 PO; -MAGN296S40 PO; +NAPR-985 PO; +ONDA4TAB14 PO
[2019-02-18 12:34] VITALS: BP 115/89; PULSE 78; RESP 19; Ht 157.5 cm; Wt 75.0 kg
[2019-02-18] MEDS ORDERED: KETOROLAC 30 MG INJ IM STA (13:47)
[2019-02-18] MEDS ORDERED: CYCL10TA7 PO (14:38)
[2019-02-18] MEDS ORDERED: IBUP-1542 PO (14:38)
--- NOTE | 2019-02-18 14:46 | ERD ---
ER Documentation Chief Complaint Chief Complaint back pain x 3 days HPI 54-year-old female with possible past history presents to the ED with complaints of left mid thoracic and lumbar pain times 4 days. Patient denies any trauma. Denies any recent falls. Pain is worse with any twisting motion at the hips. Pain is non-radiating. Denies any numbness, tingling, focal weakness. Denies any loss of bowel or bladder control. Denies any fevers or chills. No history of similar pain. Patient has been taking Aleve at home with no improvement. ROS All systems reviewed and are negative except as per history of present illness. Medications Home Meds Active Scripts Ibuprofen* (Ibuprofen*) 600 Mg Tablet, 600 MG PO Q6H PRN for PAIN AND/OR INFLAMMATION, #30 TAB Prov:GABINOIGRJOANANQUNYH-C 02/18/19 Cyclobenzaprine Hcl* (Cyclobenzaprine Hcl*) 10 Mg Tablet, 10 MG PO TID, #15 TAB Prov:QUYNH DODSON-C 02/18/19 Ondansetron (Ondansetron Odt) 4 Mg Tab.rapdis, 4 MG PO Q6H PRN for NAUSEA AND/OR VOMITING, #10 TAB Prov:BLADIMIR REDD PA-C 05/21/18 Ibuprofen* (Motrin*) 600 Mg Tab, 600 MG PO Q6, #30 TAB Prov:BLADIMIR REDDC 05/21/18 Naproxen* (Naprosyn*) 500 Mg Tablet, 500 MG PO BID PRN for PAIN AND/OR INFLAMMATION, #30 TAB Prov:ELMER HERNANDEZ MD 01/27/18 Ondansetron (Zofran Odt) 4 Mg Tab.rapdis, 4 MG PO Q6, #10 Prov:KRISTYN RODRÍGUEZ DO 08/04/17 Naproxen* (Naproxen*) 500 Mg Tablet, 500 MG PO BID PRN for PAIN, #20 TAB Prov:KRISTYN RODRÍGUEZ DO 08/04/17 Allergies Allergies: Coded Allergies: No Known Allergy (Unverified , 02/18/19) PMhx/Soc History of Surgery: Yes (LAP LARS) Anesthesia Reaction: No Hx Neurological Disorder: No Hx Respiratory Disorders: No Hx Cardiac Disorders: No Hx Psychiatric Problems: No Hx Miscellaneous Medical Probl: No Hx Alcohol Use: Yes Hx Substance Use: No Hx Tobacco Use: No Physical Exam Vitals Vital Signs Date Temp Pulse Resp B/P (MAP) Pulse Ox O2 O2 Flow FiO2 Time Delivery Rate 02/18/19 98.2 78 19 115/89 98 12:34 (98) Physical Exam Const: No acute distress Head: Atraumatic Eyes: Normal Conjunctiva ENT: Normal External Ears, Nose and Mouth. Neck: Full range of motion. No meningismus. Abd: Soft, non tender, non distended. Normal bowel sounds Skin: No petechiae or rashes Back Exam: Skin: + left lumbar paraspinal tenderness. No bruising or rash Compartments: Soft Motor: + Pain with flexion and extension of bilateral hip. Normal flexion of knee/ankle/foot Sensation: Intact to light touch throughout Bones: No midline TTP. SLR: negative Ext: No cyanosis, or edema Neur: Awake and alert Psych: Normal Mood and Affect Results 24 hrs Current Medications Medications Dose Sig/Kaur Start Time Status Last (Trade) Ordered Route PRN Stop Time Admin Dose Reason Admin Ketorolac 30 mg ONCE STAT 02/18/19 DC 02/18/19 Tromethamine IM 13:47 02/18/19 14:04 (Toradol) 13:49 Procedures/MDM ED course: Patient given Toradol IM with improvement of her symptoms. MDM: 54-year-old patient presents today with atraumatic low back pain. There are no focal neurological deficits on physical exam. Advanced imaging was deferred as symptoms are likely musculoskeletal in origin. I have low suspicion for epidural abscess, cauda equina, cord compression, spinal tumor/mass or compression fracture. Patient will be treated conservatively with appropriate pain control. Follow up with PCP in 1 week, otherwise return to the ED for any new or worsening symptoms. Prescriptions: Ibuprofen, Flexeril Departure Diagnosis: Primary Impression: Lumbar strain Encounter type: initial encounter Qualified Codes: S39.012A - Strain of muscle, fascia and tendon of lower back, initial encounter Condition: Stable Patient Instructions: Back Exercises: Lower Back Stretch Ref[facility] Usted se sacnhes hecho un examen mdico de control que le indica que no est en matthew condicin que requiera tratamiento urgente en el Departamento de Emergencia. Un estudio ms profundo y el tratamiento de luu condicin pueden esperar sin ningn riesgo hasta que usted sea atendida/o en el consultorio de luu mdico o matthew clnica. Es responsabilidad suya arreglar matthew nicole para el seguimiento del jaswant. MANEJO DE CONDICIONES NO URGENTES EN EL FUTURO 1) Si usted tiene un mdico de atencin primaria: Usted debera llamar a luu mdico de atencin primaria antes de venir al departamento de emergencia. Despus de las horas de consultorio, luu doctor o luu asociado/a est disponible por telfono. El mdico o enfermero de lesley en el servicio telefnico puede asesorarle por rasta medio para atender el problema, o jaswant contrario se puede programar matthew nicole. 2) Si usted no tiene un mdico de atencin primaria: Llame al mdico o clnica de referencia que aparece abajo lavern las horas de consultorio para hacer matthew nicole para que le vean. CLINICAS: [facility] [phone] [facility] [phone] [facility] [phone] [facility]. [place] [id number] [phone] [facility]. [place] [id number] [phone] [facility]. [phone] [facility] () Usted se sanches hecho un examen mdico de control que le indica que no est en matthew condicin que requiera tratamiento urgente en el Departamento de Emergencia. Un estudio ms profundo y el tratamiento de luu condicin pueden esperar sin ningn riesgo hasta que usted sea atendida/o en el consultorio de luu mdico o matthew clnica. Es responsabilidad suya arreglar matthew nicole para el seguimiento del jaswant. MANEJO DE CONDICIONES NO URGENTES EN EL FUTURO 1) Si usted tiene un mdico de atencin primaria: Usted debera llamar a luu mdico de atencin primaria antes de venir al departamento de emergencia. Despus de las horas de consultorio, luu doctor o luu asociado/a est disponible por telfono. El mdico o enfermero de lesley en el servicio telefnico puede asesorarle por rasta medio para atender el problema, o jaswant contrario se puede programar matthew nicole. 2) Si usted no tiene un mdico de atencin primaria: Llame al mdico o condado institucions de referencia que aparece abajo lavern las horas de consultorio para hacer matthew nicole para que le vean. SI USTED NO PUEDE PAGAR PARA WADE UN MEDICO puede ir a: [facility] [address] [place] [address] [facility] [address] [place] [address] [facility] [address] [place] [address] [facility] [address] [place] [address] [facility] Care 7 a.m.- 11 p.m. Every Day of the Week NO APPOINTMENT OR AUTHORIZATION NEEDED Additional Instructions: I recommend alternating between warm and cold compresses to your left upper back, did not remain lying down for long periods of time. Take the Flexeril and the ibuprofen as needed for any pain, use the back exercises needed. You may need physical therapy for further management of your pain. Return here for any fever, worsening back pain, bowel or bladder incontinence or any other symptoms. QUYNH DODSON PA-C Feb 18, 2019 14:46
== END 2019-02-18 15:02 | disposition home or self-care (01) ==
LOC: FTE 12:32
DX: S39.012A Strain of muscle, fascia and tendon of lower back, initial encounter (principal); X50.1XXA Overexertion from prolonged static or awkward postures, initial encounter; Y92.9 Unspecified place or not applicable
CPT/HCPCS: 96372; J1885; Z7502

== ENCOUNTER 2019-02-28 19:19 | Emergency (ER) | payer MEDICAID ==
[~2019-02-28] VITALS: Ht 160 cm; Wt 72.7 kg
[~2019-02-28 19:19] MED LIST changes: +CYCL10TA7 PO
[2019-02-28 19:21] VITALS: Ht 160 cm; Wt 72.7 kg
[2019-02-28] MEDS ORDERED: SOD CHLORIDE 0.9% 500 ML IV STA (19:37)
[2019-02-28] MEDS ORDERED: KETOROLAC 30 MG INJ IV STA (19:37)
--- NOTE | 2019-02-28 21:16 | ERD ---
ER Documentation Chief Complaint Chief Complaint L flank pain x 2 weeks HPI During the patient's encounter translation services were utilized Language: Mosotho Source: In person 54-year-old female presents to the emergency with left flank pain. She has had 2 weeks of left flank pain that is left paraspinal and musculoskeletal worse with rotational movement and on standing. The patient has persistent pain despite visit to the emergency room 2 weeks ago. She denies any fevers or chills, no dysuria urgency or frequency no chest pain or shortness of breath and no exertional symptoms. She has tried Motrin with mild relief. ROS All systems reviewed and are negative except as per history of present illness. Medications Home Meds Active Scripts Ibuprofen* (Ibuprofen*) 600 Mg Tablet, 600 MG PO Q6H PRN for PAIN AND/OR INFLAMMATION, #30 TAB Prov:QUYNH DODSON PA-C 02/18/19 Cyclobenzaprine Hcl* (Cyclobenzaprine Hcl*) 10 Mg Tablet, 10 MG PO TID, #15 TAB Prov:QUYNH DODSON PA-C 02/18/19 Ondansetron (Ondansetron Odt) 4 Mg Tab.rapdis, 4 MG PO Q6H PRN for NAUSEA AND/OR VOMITING, #10 TAB Prov:BLADIMIR REDD PA-C 05/21/18 Ibuprofen* (Motrin*) 600 Mg Tab, 600 MG PO Q6, #30 TAB Prov:BLADIMIR REDD PA-C 05/21/18 Naproxen* (Naprosyn*) 500 Mg Tablet, 500 MG PO BID PRN for PAIN AND/OR INFLAMMATION, #30 TAB Prov:ELMER HERNANDEZ MD 01/27/18 Ondansetron (Zofran Odt) 4 Mg Tab.rapdis, 4 MG PO Q6, #10 Prov:KRISTYN RODRÍGUEZ DO 08/04/17 Naproxen* (Naproxen*) 500 Mg Tablet, 500 MG PO BID PRN for PAIN, #20 TAB Prov:KRISTYN RODRÍGUEZ DO 08/04/17 Allergies Allergies: Coded Allergies: No Known Allergy (Unverified , 02/18/19) PMhx/Soc Medical and Surgical Hx: pt denies Medical Hx History of Surgery: Yes (LAP LARS) Anesthesia Reaction: No Hx Neurological Disorder: No Hx Respiratory Disorders: No Hx Cardiac Disorders: No Hx Psychiatric Problems: No Hx Miscellaneous Medical Probl: No Hx Alcohol Use: Yes (OCASSIONALLY) Hx Substance Use: No Hx Tobacco Use: No Smoking Status: Never smoker FmHx Family History: No diabetes Physical Exam Vitals Vital Signs Date Temp Pulse Resp B/P (MAP) Pulse Ox O2 O2 Flow FiO2 Time Delivery Rate 02/28/19 81 21 114/78 98 Room Air 19:45 (90) 02/28/19 98.7 84 16 128/68 97 19:21 (88) Physical Exam General: Well developed, well nourished, no acute distress Head: Normocephalic, atraumatic. Eyes: Pupils equally reactive, EOM intact ENT: Moist mucous membranes Neck: Supple, no lymphadenopathy Respiratory: Lungs clear bilaterally, no distress Cardiovascular: RRR, no murmurs, rubs, or gallops Abdominal: Soft, non-tender, non-distended, no peritoneal signs Back: Reproducible soft tissue tenderness to the lumbar paraspinal muscles without midline tenderness deformities or step-offs to the thoracolumbar spine : Deferred MSK: No edema, no unilateral swelling, 5/5 strength Neurologic: Alert and oriented, moving all extremities, normal speech, no focal weakness, no cerebellar signs Skin: No rash Psych: Normal mood Result Diagram: 02/28/19194202/28/191942 Results 24 hrs Laboratory Tests Test 02/28/19 19:43 02/28/19 19:47 White Blood Count 7.7 10^3/ul Red Blood Count 4.44 10^6/ul Hemoglobin 13.1 g/dl Hematocrit 39.0 % Mean Corpuscular Volume 87.8 fl Mean Corpuscular Hemoglobin 29.5 pg Mean Corpuscular Hemoglobin Concent 33.6 g/dl Red Cell Distribution Width 13.5 % Platelet Count 303 10^3/UL Mean Platelet Volume 8.9 fl Immature Granulocytes % 0.400 % Neutrophils % 47.4 % Lymphocytes % 36.3 % Monocytes % 8.8 % Eosinophils % 5.8 % Basophils % 1.3 % Nucleated Red Blood Cells % 0.0 /100WBC Immature Granulocytes # 0.030 10^3/ul Neutrophils # 3.7 10^3/ul Lymphocytes # 2.8 10^3/ul Monocytes # 0.7 10^3/ul Eosinophils # 0.5 10^3/ul Basophils # 0.1 10^3/ul Nucleated Red Blood Cells # 0.0 10^3/ul Urine Color STRAW Urine Clarity CLEAR Urine pH 6.0 Urine Specific Newton 1.004 Urine Ketones NEGATIVE mg/dL Urine Nitrite NEGATIVE mg/dL Urine Bilirubin NEGATIVE mg/dL Urine Urobilinogen NEGATIVE mg/dL Urine Leukocyte Esterase TRACE Leonela/ul Urine Microscopic RBC 1 /HPF Urine Microscopic WBC 6 /HPF Urine Bacteria FEW /HPF Urine Hemoglobin 1+ mg/dL Urine Glucose NEGATIVE mg/dL Urine Total Protein NEGATIVE mg/dl Sodium Level 141 mmol/L Potassium Level 3.7 mmol/L Chloride Level 105 mmol/L Carbon Dioxide Level 27 mmol/L Anion Gap 9 Blood Urea Nitrogen 16 mg/dl Creatinine 0.74 mg/dl Est Glomerular Filtrat Rate mL/min > 60 mL/min Glucose Level 96 mg/dl Calcium Level 9.8 mg/dl Total Bilirubin 0.2 mg/dl Direct Bilirubin 0.00 mg/dl Indirect Bilirubin 0.2 mg/dl Aspartate Amino Transf (AST/SGOT) 41 IU/L Alanine Aminotransferase (ALT/SGPT) 41 IU/L Alkaline Phosphatase 115 IU/L Total Protein 7.4 g/dl Albumin 4.4 g/dl Globulin 3.00 g/dl Albumin/Globulin Ratio 1.46 Lipase 80 U/L Bedside Urine pH (LAB) 5.5 Bedside Urine Protein (LAB) Negative Bedside Urine Glucose (UA) Negative Bedside Urine Ketones (LAB) Negative Bedside Urine Blood 1+ Bedside Urine Nitrite (LAB) Negative Bedside Urine Leukocyte Esterase (L Trace Current Medications Medications Dose Sig/Kaur Start Time Status Last (Trade) Ordered Route PRN Stop Time Admin Dose Reason Admin Sodium 500 ml @ Q1H STAT 02/28/19 DC 02/28/19 Chloride 500 mls/hr IV 19:37 20:05 02/28/19 20:36 Ketorolac 30 mg ONCE STAT 02/28/19 DC 02/28/19 Tromethamine IV 19:37 20:04 (Toradol) 02/28/19 19:54 Procedures/MDM EKG, MONITORS, & DIAGNOSTIC IMAGING: CT abdomen pelvis: IMPRESSION: 1. Status post hysterectomy with recurrent or residual left adnexal probable ovarian cyst measuring up to 2.5 cm today versus prior 2.8 cm. This can be be tter evaluated by pelvic ultrasound if clinically warranted. 2. No nephrolithiasis nor hydronephrosis. 3. Minimal left colonic diverticulosis without evidence of acute diverticulitis. The bowel is unobstructed without evidence of perforation or abscess, and the appendix appears normal. 4. Evidence of chronic granulomatous disease. 5. Mild focal upper lumbar kyphosis may reflect muscle spasm. 6. Stable 2 cm left iliac benign - appearing osseous sclerotic lesion. RPTAT: HSAN LAB INTERPRETATION: I reviewed the laboratory testing and it shows no evidence of acute process MEDICAL DECISION MAKING: Patient presents with persistent left flank pain. On exam and history this is most consistent with muscular skeletal etiology. However the patient is having persistent pain over the 2-week timeframe. I believe CT to rule out renal process will be reasonable or acute intra-abdominal process. I have a lower pretest probability for this however. Patient has no signs or symptoms concerning for cauda equina or cord compression. The patient's low back pain is unlikely related to serious etiology. The patient exhibits no clinical signs or symptoms and has no history or risk factors to suggest cauda equina, cord compression, epidural abscess, epidural hematoma, acute aortic aneurysm or dissection. ER COURSE: * Patient given pain medication. Laboratory testing is reassuring * Diagnostic imaging is unrevealing. At this time this is very consistent with muscular skeletal etiology. NSAID and muscle relaxer combination would be reasonable. CONSULTATION: None DISPOSITION PLAN: The patient does not have an identifiable emergent medical condition that warrants inpatient hospitalization at this time. The patient is deemed safe for discharge with outpatient follow-up. We discussed follow up with the patient's primary care doctor within 24 to 48 hours as needed. We also discussed return to the emergency room for worsening symptoms or worsening condition. Outpatient referral: None required Discharge Medications: Motrin, Valium Departure Diagnosis: Primary Impression: Acute left flank pain Additional Impression: Acute lumbar myofascial strain Encounter type: initial encounter Qualified Codes: S39.012A - Strain of muscle, fascia and tendon of lower back, initial encounter Condition: Stable NEETA ORDONEZ MD Feb 28, 2019 21:16
[2019-02-28] MEDS ORDERED: IBUP800T48 PO (21:24)
[2019-02-28] MEDS ORDERED: DIAZ5TAB PO (21:24)
[2019-02-28 21:40] VITALS: BP 108/70; PULSE 77; RESP 17
== END 2019-02-28 21:55 | disposition home or self-care (01) ==
LOC: E/R 19:19
DX: S39.91XA Unspecified injury of abdomen, initial encounter (principal); S39.012A Strain of muscle, fascia and tendon of lower back, initial encounter; X50.1XXA Overexertion from prolonged static or awkward postures, initial encounter; Y92.9 Unspecified place or not applicable
CPT/HCPCS: 36415; 74176; 80053; 81001; 83690; 85025; 96374; J1885; J7040; Z7502; 81003

== ENCOUNTER 2019-05-27 09:15 | Emergency (ER) | payer MEDICAID ==
[~2019-05-27] VITALS: Wt 70.0 kg
[~2019-05-27 09:15] MED LIST changes: +DIAZ5TAB PO; +IBUP800T48 PO
[2019-05-27 09:18] VITALS: BP 142/62; PULSE 97; RESP 18
[2019-05-27] MEDS ORDERED: KETOROLAC 15 MG INJ IV STA (10:42)
[2019-05-27] MEDS ORDERED: IBUP800T48 PO (12:17)
[2019-05-27] MEDS ORDERED: DIAZ5TAB PO (12:18)
--- NOTE | 2019-05-27 12:21 | ERD ---
ER Documentation Chief Complaint Chief Complaint TINGLING OVER SHOULDER RAD ABD, LEFT FACIAL PAIN,NAUSEA,INSOMNIA HPI Translation services were utilized during this patient's encounter Language: Yoruba Source: In person 54-year-old female presents to the emergency room multiple complaints. Her main complaint is bilateral trapezius pain. The patient states that she has a repetitive motion using her upper extremities at work-up for 10 hours at a time. Over the last 4 days she has noted some pain to this area. She feels some discomfort in the anterior chest related to movement. She denies any fevers or chills. She is also describing some numbness tingling over the bilateral shoulders and occasionally to her face, left-sided greater than right-sided but occasionally bilateral. She denies any significant chest pressure, no exertional symptoms no fevers or chills, no migratory pain. ROS All systems reviewed and are negative except as per history of present illness. Medications Home Meds Active Scripts Diazepam* (Valium*) 5 Mg Tablet, 5 MG PO Q8 PRN for MUSCLE SPASMS, #10 TAB Prov:NEETA ORDONEZ MD 05/27/19 Ibuprofen* (Motrin*) 800 Mg Tab, 800 MG PO Q6H PRN for PAIN AND OR ELEVATED TEMP, #30 TAB Prov:NEETA ORDONEZ MD 05/27/19 Ibuprofen* (Ibuprofen*) 600 Mg Tablet, 600 MG PO Q6H PRN for PAIN AND/OR IN FLAMMATION, #30 TAB Prov:QUYNH DODSON N PA-C 02/18/19 Discontinued Scripts Ibuprofen* (Motrin*) 800 Mg Tab, 800 MG PO Q6H PRN for PAIN AND OR ELEVATED TEMP, #30 TAB Prov:NEETA ORDONEZ MD 02/28/19 Diazepam* (Valium*) 5 Mg Tablet, 5 MG PO Q8 PRN for MUSCLE SPASMS, #20 TAB Prov:NEETA ORDONEZ MD 02/28/19 Cyclobenzaprine Hcl* (Cyclobenzaprine Hcl*) 10 Mg Tablet, 10 MG PO TID, #15 TAB Prov:QUYNH DODSON N PA-C 02/18/19 Ondansetron (Ondansetron Odt) 4 Mg Tab.rapdis, 4 MG PO Q6H PRN for NAUSEA AND/OR VOMITING, #10 TAB Prov:BLADIMIR REDD PA-C 05/21/18 Ibuprofen* (Motrin*) 600 Mg Tab, 600 MG PO Q6, #30 TAB Prov:BLADIMIR REDD PA-C 05/21/18 Naproxen* (Naprosyn*) 500 Mg Tablet, 500 MG PO BID PRN for PAIN AND/OR INFLAMMATION, #30 TAB Prov:ELMER HERNANDEZ MD 01/27/18 Ondansetron (Zofran Odt) 4 Mg Tab.rapdis, 4 MG PO Q6, #10 Prov:KRISTYN RODRÍGUEZ 08/04/17 Naproxen* (Naproxen*) 500 Mg Tablet, 500 MG PO BID PRN for PAIN, #20 TAB Prov:KRISTYN RODRÍGUEZ DO 08/04/17 Allergies Allergies: Coded Allergies: No Known Allergy (Unverified , 02/18/19) PMhx/Soc History of Surgery: Yes (LAP LARS) Anesthesia Reaction: No Hx Neurological Disorder: No Hx Respiratory Disorders: No Hx Cardiac Disorders: No Hx Psychiatric Problems: No Hx Miscellaneous Medical Probl: No Hx Alcohol Use: Yes (OCASSIONALLY) Hx Substance Use: No Hx Tobacco Use: No Smoking Status: Never smoker FmHx Family History: No diabetes Physical Exam Vitals Vital Signs Date Temp Pulse Resp B/P (MAP) Pulse Ox O2 O2 Flow FiO2 Time Delivery Rate 05/27/19 97.6 97 18 142/62 99 09:18 (88) Physical Exam General: Well developed, well nourished, no acute distress Head: Normocephalic, atraumatic. Eyes: Pupils equally reactive, EOM intact ENT: Moist mucous membranes Neck: Supple, no lymphadenopathy Respiratory: Lungs clear bilaterally, no distress Cardiovascular: RRR, no murmurs, rubs, or gallops Abdominal: Soft, non-tender, non-distended, no peritoneal signs : Deferred MSK: No edema, no unilateral swelling, 5/5 strength subtle reproducible soft tis malissa tenderness to the bilateral trapezius muscles Neurologic: Alert and oriented, moving all extremities, normal speech, no focal weakness, no cerebellar signs Skin: No rash Psych: Normal mood Result Diagram: 05/27/19 1050 05/27/19 1050 Results 24 hrs Laboratory Tests Test 05/27/19 10:50 White Blood Count 4.0 10^3/ul Red Blood Count 4.50 10^6/ul Hemoglobin 13.4 g/dl Hematocrit 38.9 % Mean Corpuscular Volume 86.4 fl Mean Corpuscular Hemoglobin 29.8 pg Mean Corpuscular Hemoglobin Concent 34.4 g/dl Red Cell Distribution Width 13.4 % Platelet Count 136 10^3/UL Mean Platelet Volume 9.2 fl Immature Granulocytes % 0.500 % Neutrophils % % Lymphocytes % % Monocytes % % Eosinophils % % Basophils % % Nucleated Red Blood Cells % 0.0 /100WBC Immature Granulocytes # 0.020 10^3/ul Neutrophils # 10^3/ul Lymphocytes # 10^3/ul Monocytes # 10^3/ul Eosinophils # 10^3/ul Basophils # 10^3/ul Nucleated Red Blood Cells # 10^3/ul Sodium Level 140 mmol/L Potassium Level 3.6 mmol/L Chloride Level 107 mmol/L Carbon Dioxide Level 24 mmol/L Anion Gap 9 Blood Urea Nitrogen 8 mg/dl Creatinine 0.58 mg/dl Est Glomerular Filtrat Rate mL/min > 60 mL/min Glucose Level 110 mg/dl Calcium Level 9.0 mg/dl Troponin I < 0.012 ng/ml Current Medications Medications Dose Sig/Kaur Start Time Status Last (Trade) Ordered Route PRN Stop Time Admin Dose Reason Admin Ketorolac 15 mg ONCE STAT 05/27/19 DC 05/27/19 Tromethamine IV 10:42 10:49 (Toradol) 05/27/19 10:44 Procedures/MDM EKG, MONITORS, & DIAGNOSTIC IMAGING: EKG: I reviewed and interpreted a 12-lead EKG. Rhythm: Normal sinus rhythm ST Changes: No contiguous ST segment elevations T waves: No contiguous T wave inversions Impression: No evidence of acute cardiac ischemia Chest x-ray: I reviewed and interpreted a 1 view of the chest Mediastinum: No enlargement Cardiac silhouette: No cardiomegaly Airspace: Clear lung mccain bilaterally without evidence of pneumothorax Bones: No evidence of fracture LAB INTERPRETATION: I reviewed the laboratory testing and it shows no evidence of acute process MEDICAL DECISION MAKING: The patient's clinical exam and history is very consistent with likely repetitive use muscle strain and possible muscle spasm. I do not believe her symptoms represent acute aortic dissection, pulmonary embolism or acute coronary syndrome. The patient is otherwise well-appearing with reproducible symptoms and nonexertional symptoms. However, given the patient's age I do believe screening with laboratory testing, chest x-ray EKG and troponin would be reasonable to rule out acute process. ER COURSE: * Patient given nonsteroidal anti-inflammatory with improved symptomatology. Laboratory testing and diagnostic imaging is unrevealing. At this point the patient can be safely discharged home with a trial of NSAIDs. CONSULTATION: None DISPOSITION PLAN: The patient does not have an identifiable emergent medical condition that warrants inpatient hospitalization at this time. The patient is deemed safe for discharge with outpatient follow-up. We discussed follow up with the patient's primary care doctor within 24 to 48 hours as needed. We also discussed return to the emergency room for worsening symptoms or worsening condition. Outpatient referral: None required Discharge Medications: Motrin Departure Diagnosis: Primary Impression: Trapezius strain Encounter type: initial encounter Laterality: unspecified laterality Qualified Codes: S46.819A - Strain of other muscles, fascia and tendons at shoulder and upper arm level, unspecified arm, initial encounter Condition: Stable Patient Instructions: Muscle Spasm [facility] Usted se sanches hecho un examen mdico de control que le indica que no est en matthew condicin que requiera tratamiento urgente en el Departamento de Emergencia. Un estudio ms profundo y el tratamiento de luu condicin pueden esperar sin ningn riesgo hasta que usted sea atendida/o en el consultorio de luu mdico o matthew clnica. Es responsabilidad suya arreglar matthew amanda para el seguimiento del jaswant. MANEJO DE CONDICIONES NO URGENTES EN EL FUTURO 1) Si usted tiene un mdico de atencin primaria: Usted debera llamar a luu mdico de atencin primaria antes de venir al departamento de emergencia. Despus de las horas de consultorio, luu doctor o luu asociado/a est disponible por telfono. El mdico o enfermero de lesley en el servicio telefnico puede asesorarle por rasta medio para atender el problema, o jaswant contrario se puede programar matthew amanda. 2) Si usted no tiene un mdico de atencin primaria: Llame al mdico o clnica de referencia que aparece abajo lavern las horas de consultorio para hacer matthew amanda para que le vean. CLINICAS: [facility] [phone] [facility] [phone] [facility] [phone] [facility] [phone] [facility] [phone] [facility] [phone] [address] [facility]. [facility] () Usted se sanches hecho un examen mdico de control que le indica que no est en matthew condicin que requiera tratamiento urgente en el Departamento de Emergencia. Un estudio ms profundo y el tratamiento de luu condicin pueden esperar sin ningn riesgo hasta que usted sea atendida/o en el consultorio de luu mdico o matthew clnica. Es responsabilidad suya arreglar matthew amanda para el seguimiento del jaswant. MANEJO DE CONDICIONES NO URGENTES EN EL FUTURO 1) Si usted tiene un mdico de atencin primaria: Usted debera llamar a luu mdico de atencin primaria antes de venir al departamento de emergencia. Despus de las horas de consultorio, luu doctor o luu asociado/a est disponible por telfono. El mdico o enfermero de lesley en el servicio telefnico puede asesorarle por rasta medio para atender el problema, o jaswant contrario se puede programar matthew amanda. 2) Si usted no tiene un mdico de atencin primaria: Llame al mdico o condado institucions de referencia que aparece abajo lavern las horas de consultorio para hacer matthew amanda para que le vean. SI USTED NO PUEDE PAGAR PARA WADE UN MEDICO puede ir a: [facility] [address] [place] [address] [facility] [address] [place] [address] [facility] [address] [place] [address] [facility] [address] [place] [address] Additional Instructions: Llame al doctor nombrado abajo (Referral Sources) MAANA y titi matthew AMANDA PARA DENTRO DE MATTHEW SEMANA. Dgale a la secretaria que nosotros le instruimos hacer esta amanda.Avise o llame si luu condicin se empeora antes de la amanda. NEETA ORDONEZ MD May 27, 2019 12:21
== END 2019-05-27 12:29 | disposition home or self-care (01) ==
LOC: E/R 09:15
DX: S46.811A Strain of other muscles, fascia and tendons at shoulder and upper arm level, right arm, initial encounter (principal); S46.812A Strain of other muscles, fascia and tendons at shoulder and upper arm level, left arm, initial encounter; R07.89 Other chest pain; X50.3XXA Overexertion from repetitive movements, initial encounter; Y92.89 Other specified places as the place of occurrence of the external cause
CPT/HCPCS: 36415; 71045; 80048; 84484; 85025; 93005; 96374; J1885; Z7502

== ENCOUNTER 2019-07-20 20:36 | Emergency (ER) | payer MEDICAID ==
[~2019-07-20] VITALS: Ht 160 cm; Wt 72.3 kg
[~2019-07-20 20:36] MED LIST changes: -CYCL10TA7 PO; -NAPR-688 PO; -ONDA4TAB11 PO; -ONDA4TAB14 PO
[2019-07-20 20:42] VITALS: BP 125/74; PULSE 71; RESP 16; Ht 160 cm; Wt 72.3 kg
== END 2019-07-20 22:56 | disposition home or self-care (01) ==
LOC: FTE 20:36
DX: M72.2 Plantar fascial fibromatosis (principal)
CPT/HCPCS: 99282